=== PATIENT | female | born 1935 | race Caucasian/White ===

== ENCOUNTER → 2017-08-18 | Outpatient (CLI) | payer OTHER | LOC: CIMAGING 16:14 | PROVIDERS: ATTEND Internal Medicine | DX: M19.011 Primary osteoarthritis, right shoulder (principal); S40.011A Contusion of right shoulder, initial encounter; S70.00XA Contusion of unspecified hip, initial encounter; S70.10XA Contusion of unspecified thigh, initial encounter | CPT/HCPCS: 73030-PO; 73502-PO ==

== ENCOUNTER 2017-08-26 22:36 | Emergency (ER) | payer OTHER ==
--- NOTE | 2017-08-26 22:50 | EDPHY ---
H & P HPI/ROS: HPI CHIEF COMPLAINT: Right leg pain HISTORY OF PRESENT ILLNESS: Patient is a very pleasant 82-year-old female she has significant past medical history for AFib on Coumadin, additionally hypertension, denies history of denies history of heart disease or stroke. She presents emergency room with right leg pain this started at 8:30 a.m. this evening. Patient reports to me that last Thursday or over week ago she fell over cord she tripped over this. She landed on her right shoulder right hip. She has been using a cane to help ambulate since then. She did see her primary care doctor and had imaging of her right shoulder and right hip which she was told was normal. She states she did not have any significant pain going down her leg at that time. She states around 830 tonight she got up from a seated position and developed pain that radiates from right gluteus down the right posterior thigh and then across her knee into her foot. It is worse with certain movements. Especially when she gets up. She does report to me that she has spinal stenosis. No history of compression fracture. She denies any midline back pain. Denies new injury except a fall week ago. Pain described as achy 6/10 Radiating from right gluteus to right foot. Primary Care Doctor: Dr. Salamanca. Past Medical History: Hypertension, AFib on Coumadin, spinal stenosis Past Surgical History: Denies any recent surgery Social History: Denies daily use of drugs alcohol tobacco products. Resides locally. Dr. Salamanca is her primary care doctor Family History: Denies significant family history ROS REVIEW OF SYSTEMS: A comprehensive 10 point review of systems is otherwise negative aside from elements mentioned in the history of present illness. Exam Constitutional appears well nontoxic, triage nursing summary reviewed, vital signs reviewed, awake/alert. Eyes normal conjunctivae and sclera, EOMI, PERRLA. HENT normal inspection, atraumatic, moist mucus membranes, no epistaxis, neck supple/ no meningismus, no raccoon eyes. Respiratory clear to auscultation bilaterally, normal breath sounds, no respiratory distress, no wheezing. Cardiovascular rate normal, regular rhythm, no murmur, no edema, distal pulses normal. Gastrointestinal soft, non-tender, no rebound, no guarding, normal bowel sounds, no distension, no pulsatile mass. Genitourinary no CVA tenderness. Musculoskeletal no midline vertebral tenderness, full range of motion, no calf swelling, no tenderness of extremities, no meningismus, good pulses, neurovascularly intact. No midline lumbar back pain. Full range of motion of the right leg. It is neurovascularly intact. Sensation intact. Warm extremity. Good cap refill. Good distal pulse. With straight leg raise she does get some pain that shoots down her right leg. With crossed leg raise test no significant pain. Ecchymosis noted to the right hip. Compartments are soft. Skin ecchymosis present right shoulder, right hip. Neurologic awake, alert and oriented x 3, AAOx3, moves all 4 extremities equally, motor intact, sensory intact, CN II-XII intact, normal cerebellar, normal vision, normal speech. Psychiatric normal mood/affect. Heme/Lymph/Immune no lymphadenopathy. Differential Diagnosis: Includes but is not limited to in a particular order, sciatica, nerve root compression, annular tear, compression fracture, worsening spinal stenosis Medical Decision Making: Plan for this patient x-ray lumbar spine. She declined any pain medicine here in emergency room. Reason for lumbar spine x- rays to rule out compression fracture, given recent fall. Clinically she is neurovascular intact clinically I believe she has sciatica. I will prescribe her some pain medicine for home. Additionally recommend she has close follow- up with her primary care doctor if she continues to experience right leg pain. She has good pulse. Warm extremity. She has no signs of cauda equina. Specifically there is no saddle anesthesia. No bowel bladder incontinence or retention. There is no leg weakness. Re-evaluation: Plan for patient x-ray lumbar spine. Chandu for pain medication at home. I did discuss with the patient about possible MRI outpatient with her primary care doctor she understands. I do not feel that she needs a emergent MRI at this time. 2348: X-ray of the lumbar spine reviewed. Multilevel degenerative disc disease. Arthritic changes present. I do not appreciate acute compression fracture. This image was reviewed by myself. I discussed this at length with the patient. Recommend close follow-up with primary care doctor. Chandu for pain control. Return precautions given she understands. Source: Patient - Medical/Surgical History Hx Asthma: No Hx Chronic Respiratory Disease: No Hx Diabetes: No Hx Cardiac Disease: No Hx Renal Disease: No Hx Cirrhosis: No Hx Alcoholism: No Hx HIV/AIDS: No Hx Splenectomy or Spleen Trauma: No - Social History Smoking Status: Former smoker Constitutional: Initial Vital Signs Temperature (C) 37 C 08/26/17 22:56 Heart Rate 59 L 08/26/17 22:56 Respiratory Rate 18 08/26/17 22:56 Blood Pressure 179/72 H 08/26/17 22:56 O2 Sat (%) 91 L 08/26/17 22:56 O2 Delivery Mode Room Air Allergies/Adverse Reactions: No Known Allergies Allergy (Unverified 08/26/17 22:54) Home Medications: Medication Instructions Recorded Omeprazole [Prilosec 20 mg] 40 mg PO DAILY 05/19/16 Vit C/Vit E/Lutein/Min/[place]-3 1 each PO DAILY 05/19/16 [Ocuvite Softgel] Warfarin Sodium [Coumadin 4MG (*)] 4 mg PO DAILY16 05/19/16 Diltiazem [Cardizem 60 MG (*)] 08/26/17 Hydrocodone/APAP 5/325 [[place] 1 - 2 tab PO Q4H PRN #10 tab 08/26/17 5/325] Metoprolol Succinate 08/26/17 Departure - Departure Disposition: Home, Routine, Self-Care Clinical Impression: Sciatica Qualifiers: Laterality: unspecified laterality Qualified Code(s): M54.30 - Sciatica, unspecified side Condition: Good Instructions: Sciatica (ED), Lumbar Radiculopathy (ED) Additional Instructions: 1. Ice your back. 2. Follow up with your primary care doctor. 3. I have given you a limited supply of [place] for pain control. This is a narcotic he can make you sleepy. Do not drive with it. 4. Return emergency room if you have worsening pain questions or concerns. Referrals: Stewart Salamanca MD [Primary Care Provider] - As per Instructions Prescriptions: Hydrocodone/APAP 5/325 [[place] 5/325] 1 - 2 tab PO Q4H PRN #10 tab PRN Reason: Pain, Moderate
[2017-08-26 23:01] VITALS: PULSE 59; RESP 18; TEMP 98.6
[2017-08-27 00:05] VITALS: BP 149/77; O2SAT 92
== END 2017-08-27 00:05 | disposition home or self-care (01) ==
LOC: CED 22:36
DX: M54.30 Sciatica, unspecified side (principal); I10 Essential (primary) hypertension; Z79.01 Long term (current) use of anticoagulants; Z87.891 Personal history of nicotine dependence
CPT/HCPCS: 72100-PO

== ENCOUNTER → 2017-09-08 | Outpatient (CLI) | payer OTHER | LOC: CIMAGING 09:33 | PROVIDERS: ATTEND Internal Medicine | DX: Z12.31 Encounter for screening mammogram for malignant neoplasm of breast (principal) | CPT/HCPCS: G0202 ==

== ENCOUNTER → 2018-02-16 | Outpatient (CLI) | payer OTHER | LOC: CIMAGING 14:57 | PROVIDERS: ATTEND Internal Medicine | DX: R05 Cough (principal); R91.8 Other nonspecific abnormal finding of lung field | CPT/HCPCS: 71046-PO ==

== ENCOUNTER → 2018-02-23 | Outpatient (CLI) | payer OTHER | LOC: CIMAGING 09:11 | PROVIDERS: ATTEND Internal Medicine | DX: J98.4 Other disorders of lung (principal) | CPT/HCPCS: 71046-PO ==

== ENCOUNTER → 2018-06-23 | Outpatient (CLI) | payer OTHER | LOC: CIMAGING 09:25 | PROVIDERS: ATTEND Internal Medicine | DX: M24.10 Other articular cartilage disorders, unspecified site (principal); M23.92 Unspecified internal derangement of left knee | CPT/HCPCS: 73564-PO ==

== ENCOUNTER → 2018-07-15 | Outpatient (CLI) | payer OTHER | LOC: CIMAGING 10:30 | PROVIDERS: ATTEND Internal Medicine | DX: S72.432D Displaced fracture of medial condyle of left femur, subsequent encounter for closed fracture with routine healing (principal) | CPT/HCPCS: 73564-PO ==

== ENCOUNTER 2018-07-22 10:56 | Inpatient (IN) | payer OTHER ==
--- NOTE | 2018-07-22 11:27 | EDPHY ---
H & P Time Seen by Provider: 07/22/18 11:11 HPI/ROS: CHIEF COMPLAINT: AFib with rapid ventricular rate HISTORY OF PRESENT ILLNESS: The patient is an 83-year-old female who presents emergency department ongoing AFib and rapid ventricular rate. Patient was recently changed from short-acting diltiazem to long-acting diltiazem by her tumbler machine operator helper Dr. Jc. She was seen by her primary care physician on Thursday noted this still have a fast heart rate. Her medication dose was changed. She was told to come back to his office today. She continues to have elevated heart rate. She was sent to the emergency department for further evaluation. She denies any chest pain or shortness of breath. She has had mild pedal edema. REVIEW OF SYSTEMS: 10 systems were reveiwed and are negative with the exception of the elements mentioned in the history of present illness. Past Medical/Surgical History: Includes AFib, GERD, macular degeneration, hypertension, spinal stenosis Social history: Patient does not smoke Smoking Status: Former smoker Physical Exam: Vitals noted. Heart rate 137. GENERAL: Well-appearing, in no acute distress, alert. HEENT: Eyes normal to inspection, normal pharynx, no signs of dehydration. NECK: Normal, supple. RESPIRATORY: Clear to auscultation bilaterally, no rales, rhonchi or wheezing. CVS: Irregularly irregular tachycardia, no rubs, murmurs, or gallops. ABDOMEN: Soft, nontender, nondistended, no organomegaly. BACK: Normal to inspection, no CVA tenderness. SKIN: Normal color, no rash, warm, dry. No pallor. EXTREMITIES: Mild bilateral pedal edema, no calf tenderness, no Homans sign or cords, no joint swelling. NEURO/PSYCH: Alert and oriented, normal mood and affect, normal motor sensory exam. No obvious cranial nerve deficit. Constitutional: Initial Vital Signs Temperature (C) 36.7 C 07/22/18 11:02 Heart Rate 137 H 07/22/18 11:02 Respiratory Rate 20 07/22/18 11:02 Blood Pressure 116/81 H 07/22/18 11:02 O2 Sat (%) 92 07/22/18 11:02 O2 Delivery Mode Room Air Allergies/Adverse Reactions: No Known Allergies Allergy (Verified 07/22/18 11:01) Home Medications: Medication Instructions Recorded Omeprazole [Prilosec 20 mg] 40 mg PO DAILY 05/19/16 Vit C/Vit E/Lutein/Min/[place]-3 1 each PO DAILY 05/19/16 [Ocuvite Softgel] Warfarin Sodium [Coumadin 4MG (*)] 4 mg PO DAILY16 05/19/16 Diltiazem [Cardizem 60 MG (*)] 08/26/17 Metoprolol Succinate 08/26/17 Medical Decision Making ED Course/Re-evaluation: In the emergency department discussed the plan with the patient. I answered all her questions. IV was placed. Laboratory studies were obtained. EKG: Atrial fibrillation at 100. Normal axis. Normal intervals. No ST or T- wave abnormality. I reviewed the EKG from earlier today. She was noted to be in atrial fibrillation with a rapid rate Discussed case with Dr. Jc. He recommended treating the patient with IV diltiazem. I discussed the plan with the patient. I answered all her questions. Patient was given normal saline 5 mL IV. She is given diltiazem 10 mg IV and a diltiazem drip was ordered. The patient's initial troponin was negative. Patient had elevated BNP to 1470. INR was 2.6. Discussed case with the hospitalist service. Dr. Collins will admit. Differential Diagnosis: My differential includes but is not limited to atrial fibrillation, rapid ventricular response, ACS, acute CT, electrolyte abnormality, sugar abnormality , dehydration Critical Care Time: Patient required 35 min of critical care time. This was exclusive of any unbundled procedure. This was due the patient's atrial fibrillation with rapid ventricular rate, need for monitoring, IV diltiazem push and diltiazem drip, consultation with hospitalist service and Cardiology. - Data Points Laboratory Results: Laboratory Results 07/22/18 11:19 07/22/18 11:19 07/22/18 07/22/18 07/22/18 11:28 11:19 11:19 WBC RBC Hgb Hct MCV MCH MCHC RDW Plt Count MPV Neut % (Auto) Lymph % (Auto) [place] % (Auto) Eos % (Auto) Baso % (Auto) Nucleat RBC Rel Count Absolute Neuts (auto) Absolute Lymphs (auto) Absolute Monos (auto) Absolute Eos (auto) Absolute Basos (auto) Absolute Nucleated RBC Immature Gran % Immature Gran # PT 28.0 SEC H SEC (12.0-15.0) INR 2.63 H (0.83-1.16) APTT 37.7 SEC SEC (23.0-38.0) Sodium 141 mEq/L mEq/L (135-145) Potassium 4.5 mEq/L mEq/L (3.3-5.0) Chloride 105 mEq/L mEq/L (97-110) Carbon Dioxide 26 mEq/l mEq/l (22-31) Anion Gap 10 mEq/L mEq/L (6-14) BUN 16 mg/dL mg/dL (7-23) Creatinine 0.7 mg/dL mg/dL (0.6-1.0) Estimated GFR > 60 Glucose 94 mg/dL mg/dL (70-100) Calcium 9.1 mg/dL mg/dL (8.5-10.4) POC Troponin I 0.00 ng/mL ng/mL (0.00-0.08) NT-Pro-B Natriuret Pep 1470 pg/mL H pg/mL (0-450) 07/22/18 11:19 WBC 10.08 10^3/uL H 10^3/uL (3.80-9.50) RBC 4.40 10^6/uL 10^6/uL (4.18-5.33) Hgb 12.9 g/dL g/dL (12.6-16.3) Hct 39.9 % % (38.0-47.0) MCV 90.7 fL fL (81.5-99.8) MCH 29.3 pg pg (27.9-34.1) MCHC 32.3 g/dL L g/dL (32.4-36.7) RDW 14.9 % % (11.5-15.2) Plt Count 368 10^3/uL 10^3/uL (150-400) MPV 10.3 fL fL (8.7-11.7) Neut % (Auto) 66.0 % % (39.3-74.2) Lymph % (Auto) 24.0 % % (15.0-45.0) [place] % (Auto) 8.4 % % (4.5-13.0) Eos % (Auto) 0.5 % L % (0.6-7.6) Baso % (Auto) 0.9 % % (0.3-1.7) Nucleat RBC Rel Count 0.0 % % (0.0-0.2) Absolute Neuts (auto) 6.65 10^3/uL H 10^3/uL (1.70-6.50) Absolute Lymphs (auto) 2.42 10^3/uL 10^3/uL (1.00-3.00) Absolute Monos (auto) 0.85 10^3/uL H 10^3/uL (0.30-0.80) Absolute Eos (auto) 0.05 10^3/uL 10^3/uL (0.03-0.40) Absolute Basos (auto) 0.09 10^3/uL 10^3/uL (0.02-0.10) Absolute Nucleated RBC 0.00 10^3/uL 10^3/uL (0-0.01) Immature Gran % 0.2 % % (0.0-1.1) Immature Gran # 0.02 10^3/uL 10^3/uL (0.00-0.10) PT INR APTT Sodium Potassium Chloride Carbon Dioxide Anion Gap BUN Creatinine Estimated GFR Glucose Calcium POC Troponin I NT-Pro-B Natriuret Pep Medications Given: Discontinued Medications Sodium Chloride (Ns) 500 mls @ 0 mls/hr IV EDNOW ONE; Wide Open PRN Reason: Protocol Stop: 07/22/18 11:29 Last Admin: 07/22/18 11:37 Dose: 500 mls Point of Care Test Results: Chemistry 07/22/18 11:28 POC Troponin I 0.00 ng/mL ng/mL (0.00-0.08) Departure - Departure Disposition: [facility] Inpatient Acute Clinical Impression: Atrial fibrillation Qualifiers: Atrial fibrillation type: unspecified Qualified Code(s): I48.91 - Unspecified atrial fibrillation Congestive heart failure Qualifiers: Heart failure type: unspecified Heart failure chronicity: acute Qualified Code( s): I50.9 - Heart failure, unspecified Condition: Good Referrals: Stewart Salamanca MD [Primary Care Provider] - As per Instructions
[2018-07-22] MEDS ORDERED: NS 500 ML IV ONE (11:28)
[2018-07-22] MEDS ORDERED: DILTIAZEM 125 MG in D5W 125 ML IV ONE (11:28)
[2018-07-22] MEDS ORDERED: DILTIAZEM 25 MG/5 ML VIAL IVP ONE (11:28)
[2018-07-22 11:34] LABS: PLATELET COUNT 368 10^3/uL (150-400)
[2018-07-22 11:43] LABS: INR 2.63 (0.83-1.16)
[2018-07-22] MEDS ORDERED: ONDANSETRON DISINTEGRATING 4 MG TAB PO PRN (12:22)
[2018-07-22] MEDS ORDERED: ONDANSETRON 4 MG/2 ML VIAL IVP PRN (12:22)
[2018-07-22] MEDS ORDERED: ACETAMINOPHEN 325 MG TAB PO PRN (12:22)
--- NOTE | 2018-07-22 12:47 | CPEKG ---
Test Reason : OPEN Blood Pressure : / mmHG Vent. Rate : 100 BPM Atrial Rate : 214 BPM P-R Int : 132 ms QRS Dur : 098 ms QT Int : 324 ms P-R-T Axes : 000 054 -39 degrees QTc Int : 418 ms Atrial fibrillation Confirmed by Karen Vann ([id number]) on 07/22/2018 12:46:30 PM Referred By: Confirmed By:Karen Vann
[2018-07-22] MEDS ORDERED: AQUAPHOR OINTMENT 3.5 OZ JAR TP PRN (12:54)
--- NOTE | 2018-07-22 13:05 | PDGENHP ---
History and Physical - Chief Complaint Rapid heart rate - History of Present Illness 83 y/o female presents the ED with chronic a-fib with acute RVR. Her diltiazem dose recently changed at the beginning of the week from 30 mg to 120 mg. Nothing in particular aggravated the onset of RVR. She occasionally feels a twinge of chest pain but it dissipates quickly after it starts. She is short of breath upon exertion but this is not new and has been happening for a year. Denies fevers, chills, n/v, lightheadedness. She is being admitted for monitoring and further diagnostic work-up. History Information - Allergies/Home Medication List Allergies/Adverse Reactions: codeine Allergy (Verified 07/22/18 12:15) Home Medications: Omeprazole [Prilosec 20 mg] 40 mg PO DAILY 05/19/16 [Last Taken 07/22/18] Warfarin Sodium [Coumadin 4MG (*)] 4 mg PO SUMOTUTHFR 05/19/16 [Last Taken 07/20] Acetaminophen [Tylenol ES 500 mg (*)] 500 mg PO DAILY PRN 07/22/18 [Last Taken 07/16/18] C/E/Zn/Cu/OM3/DHA/EPA/LUT/ZEAX [Preservision Areds 2 Softgel] 1 each PO BID 10/08 [Last Taken 07/22/18] Diltiazem HCl [Cartia Xt] 120 mg PO DAILY 07/22/18 [Last Taken 07/22/18] Metoprolol Tartrate [Lopressor 25 mg (*)] 25 mg PO HS 07/22/18 [Last Taken 07/21] Warfarin Sodium [Coumadin 2MG (*)] 2 mg PO WESA 07/22/18 [Last Taken 07/21/18] I have personally reviewed and updated: family history, medical history, social history, surgical history Past Medical History: A-Fib, GERD, Macular Degeneration, HTN, Spinal Stenosis, LALISON - Surgical History Reports: hysterectomy - Family History Positive for: hypertension Additional family history: A-fib - Social History Smoking Status: Former smoker Alcohol Use: Rarely (1-2 glasses of wine/month) Drug Use: None Review of Systems Review of Systems: ROS: 10pt was reviewed & negative except for what was stated in HPI & below Constitutional: Reports: no symptoms EENMT: Reports: no symptoms Cardiac: Reports: chest pain, irregular heart rate, palpitations Respiratory: Reports: shortness of breath Gastrointestinal: Reports: no symptoms Genitourinary: Reports: no symptoms Muscolosketal: Reports: no symptoms Skin: Reports: no symptoms Neurological: Reports: no symptoms Hematologic/Lymphatic: Reports: no symptoms Immunologic/Allergy: Reports: no symptoms Physical Exam Physical Exam: Temp Pulse Resp BP Pulse Ox 36.7 C 137 H 20 116/81 H 92 07/22/18 11:02 07/22/18 11:02 07/22/18 11:02 07/22/18 11:02 07/22/18 11:02 Constitutional: no apparent distress, appears nourished, not in pain Eyes: PERRL, anicteric sclera, EOMI Ears, Nose, Mouth, Throat: moist mucous membranes, hearing normal, ears appear normal, no oral mucosal ulcers Cardiovascular: no murmur, rub, or gallop, irregularly irregular, edema (Mild, non-pitting bilateral pedal edema) Peripheral Pulses: 2+: dorsalis-pedis (R) (Radial pulse 2+), dorsalis-pedis (L) (Radial pulse 2+) Respiratory: no respiratory distress, no rales or rhonchi, clear to auscultation Gastrointestinal: normoactive bowel sounds, soft, non-tender abdomen, no palpable masses Genitourinary: no bladder fullness, no bladder tenderness Skin: warm, normal color, no rashes or abrasions, no fluctuance, no induration, No mottled Musculoskeletal: full muscle strength, no muscle tenderness, normal joint ROM, no joint effusions Neurologic: AAOx3, sensation intact bilaterally, CN II-XII Intact Psychiatric: interacting appropriately, not anxious, not encephalopathic, thought process linear Lymph, Heme, Immunologic: no cervical LAD, no supraclavicular LAD Lab Data & Imaging Review 07/22/18 11:19 07/22/18 11:19 WBC 10.08 10^3/uL (3.80-9.50) H 07/22/18 11:19 RBC 4.40 10^6/uL (4.18-5.33) 07/22/18 11:19 Hgb 12.9 g/dL (12.6-16.3) 07/22/18 11:19 Hct 39.9 % (38.0-47.0) 07/22/18 11:19 MCV 90.7 fL (81.5-99.8) 07/22/18 11:19 MCH 29.3 pg (27.9-34.1) 07/22/18 11:19 MCHC 32.3 g/dL (32.4-36.7) L 07/22/18 11:19 RDW 14.9 % (11.5-15.2) 07/22/18 11:19 Plt Count 368 10^3/uL (150-400) 07/22/18 11:19 MPV 10.3 fL (8.7-11.7) 07/22/18 11:19 Neut % (Auto) 66.0 % (39.3-74.2) 07/22/18 11:19 Lymph % (Auto) 24.0 % (15.0-45.0) 07/22/18 11:19 [place] % (Auto) 8.4 % (4.5-13.0) 07/22/18 11:19 Eos % (Auto) 0.5 % (0.6-7.6) L 07/22/18 11:19 Baso % (Auto) 0.9 % (0.3-1.7) 07/22/18 11:19 Nucleat RBC Rel Count 0.0 % (0.0-0.2) 07/22/18 11:19 Absolute Neuts (auto) 6.65 10^3/uL (1.70-6.50) H 07/22/18 11:19 Absolute Lymphs (auto) 2.42 10^3/uL (1.00-3.00) 07/22/18 11:19 Absolute Monos (auto) 0.85 10^3/uL (0.30-0.80) H 07/22/18 11:19 Absolute Eos (auto) 0.05 10^3/uL (0.03-0.40) 07/22/18 11:19 Absolute Basos (auto) 0.09 10^3/uL (0.02-0.10) 07/22/18 11:19 Absolute Nucleated RBC 0.00 10^3/uL (0-0.01) 07/22/18 11:19 Immature Gran % 0.2 % (0.0-1.1) 07/22/18 11:19 Immature Gran # 0.02 10^3/uL (0.00-0.10) 07/22/18 11:19 PT 28.0 SEC (12.0-15.0) H 07/22/18 11:19 INR 2.63 (0.83-1.16) H 07/22/18 11:19 APTT 37.7 SEC (23.0-38.0) 07/22/18 11:19 Sodium 141 mEq/L (135-145) 07/22/18 11:19 Potassium 4.5 mEq/L (3.3-5.0) 07/22/18 11:19 Chloride 105 mEq/L (97-110) 07/22/18 11:19 Carbon Dioxide 26 mEq/l (22-31) 07/22/18 11:19 Anion Gap 10 mEq/L (6-14) 07/22/18 11:19 BUN 16 mg/dL (7-23) 07/22/18 11:19 Creatinine 0.7 mg/dL (0.6-1.0) 07/22/18 11:19 Estimated GFR > 60 07/22/18 11:19 Glucose 94 mg/dL (70-100) 07/22/18 11:19 Calcium 9.1 mg/dL (8.5-10.4) 07/22/18 11:19 POC Troponin I 0.00 ng/mL (0.00-0.08) 07/22/18 11:28 NT-Pro-B Natriuret Pep 1470 pg/mL (0-450) H 07/22/18 11:19 Assessment & Plan Assessment: 83 y/o female with history significant for A-Fib and HTN presents with RVR. Plan: 1. A-Fib with RVR: stable. HR and BP in ED was 137 and 116/81. Received Diltiazem 10 mg IVP and started on Dilitiazem drip. HR and BP now are 106 and 112/69. [id number] score: 4 points = Stroke risk 4.8% per year in >90,000 patients ( the [place] Atrial Fibrillation Cohort Study) and 6.7% risk of stroke/TIA/ systemic embolism. -Dr. Jc consulted and aware -Continue Diltiazem drip -Introduce diltiazem PO -Completely wean off drip when rate controlled with PO -Continue warfarin; she took her dose today 2. GERD -Continue home medications 3. HTN -Monitor with diltiazem drip -Continue home medications 4. ALLISON: wears CPAP at home -Monitor O2 sats -Respiratory consult for HS CPAP 5. BNP: 1470. Do not have a baseline to compare but does not present with s/s indicative of heart failure. CTAB; not SOB while in conversation and in 2016 left sided cath, angiography and ventriculogram showed 65% LVEF. -Continue to monitor Diet: Regular VTE ppx: Warfarin, SCDs Code: DNR Dispo: Admit to inpatient
[2018-07-22] MEDS: DILTIAZEM 30 MG TAB PO SCH ×2 (14:11→18:01)
--- NOTE | 2018-07-22 14:55 | HOSPPROG ---
Hospitalist Progress Note Assessment/Plan: Patient seen and evaluated by myself and SHANIA Mills. I agree with assessment and plan formulated. Patient currently on diltiazem gtt with HR 100- 140's. We will reinitiate short acting diltiazem 30 mg q6 hours and attempt to wean off diltiazem gtt. Patient also on Metoprolol 25 mg qHS, will uptitrate B- [place] as well for rate control if CCB is ineffective. Per patient, Dr. Jc , her primary water/wastewater project engineer who saw patient in ED today, will discuss with EP, Dr. Link. Will await official cardiology recommendations. Objective: Vital Signs Temp Pulse Resp BP Pulse Ox 36.4 C 102 H 16 129/79 H 90 L 07/22/18 14:39 07/22/18 14:39 07/22/18 14:39 07/22/18 14:39 07/22/18 14:39 PT 28.0 SEC (12.0-15.0) H 07/22/18 11:19 INR 2.63 (0.83-1.16) H 07/22/18 11:19 ICD10 Worksheet Patient Problems: Problems Problem Status Onset Atrial fibrillation Acute Congestive heart failure Acute
--- NOTE | 2018-07-22 15:08 | PDMN ---
Medical Necessity Medical necessity: Pt meets inpt criteria per MD order and MCG M-505, Atrial Fibrillation. 83 y/o presenting w/shortness of breath and occasional chest pain admitted w/afib w/RVR HR 130's, elevated BNP 1470 indicative of heart failure. Diltiazem gtt initiated, cardiology consult, EP consult pending, anticipate>2MN for ongoing eval/management of above.
--- NOTE | 2018-07-22 16:11 | ECHO ---
[email or web address] [address] [address] Main: [phone] Fax: [email or web address] Echocardiogram Name: ANTONIA TRIANA MR#: [id number] Study Date: 07/22/2018 Study Time: 03:15 PM Date of : 1935 Age: 83 year(s) Height: 154.9 cm (61 in.) Weight: 84.37 kg (186 lb.) BSA: 1.83 m2 Gender: Female Examination: Echo Indication: afib with RVR, elevated BNP Image Quality: Adequate Contrast: Requested by: Fausto Collins BP: 128 mmHg/79 mmHg Heart Rate: Rhythm: Indication: afib with RVR, elevated BNP Procedure Staff Inverter And Clipper: Carrie Damian [facility] Reading Physician: Camilo Colorado MD Requesting Provider: Conclusions: Borderline concentric LV hypertrophy. Normal global systolic LV function. EF is 63 %. Moderate mitral annular calcification. Mild mitral valve regurgitation is present. Mild tricuspid regurgitation is present. Right ventricular systolic pressure measures 49mmHg. Measurements: Chambers Valvular Assessment AV/MV Valvular Assessment TV/PV Normal Normal Normal Name Value Range Name Value Range Name Value Range Ao Deonna (MM): 3.0 cm (2.2 cm-3.7 AV Vmax: 1.28 m/s (1 m/s-1.7 TR Vmax: 2.93 mm/s ( - ) cm) m/s) TR PGmax: 34 mmHg ( - ) IVSd (2D): 0.9 cm (0.6 cm-1.1 AV maxP mmHg ( - ) syst. PAP: 49 mmHg ( - ) cm) LVOT Vmax: 0.81 m/s (0.7 m/s-1.1 PV Vmax: 0.95 m/s (0.6 m/s-0.9 LVDd (2D): 4.7 cm (3.9 cm-5.3 m/s) m/s) cm) KELLY (Vmax): 2.0 cm2 ( - ) PV PGmax: 4 mmHg ( - ) LVDs (2D): 3.0 cm (2.1 cm-4 MV E Vmax: 1.05 m/s ( - ) cm) LVPWd (2D): 1.0 cm ( - ) LVOTd 2.0 cm 2.0 cm mm LVEF (BP): 63 % (>=55 %) RVDd(2D): 3.1 cm (1.9 cm-3.8 cmmm) Continued Measurements: Chambers Valvular Assessment AV/MV Valvular Assessment TV/PV Name Value Name Value Name Value Patient: ANTONIA TRIANA Study Date: 07/22/2018 Page 1 of 2 03:15 PM LADs: 4.2 cm MV DecTime: 134 m/s CVP (est.): 15 mmHg LADs Lon.8 cm MV E' Septal: 0.08 m/s LA Area: 23.3 cm2 MV E/E' Septal: 12.70 LA Volume: 76 ml MV E' Lateral: 0.08 m/s LA Volume Index: 41.5 ml/m2 MV E/E' Lateral: 12.40 TAPSE: 1.8 cm MV E' Mean: 0.08 m/s RA Area: 19.9 cm2 MV E/E' Mean: 13.12 Additional Vessels Name Value Ao Ascendin.2 cm Findings: Left Ventricle: Normal size left ventricle. Borderline concentric LV hypertrophy. Normal global systolic LV function. EF is 63 %. No regional wall motion abnormality. Unable to assess diastolic dysfunction. Right Ventricle: Normal size right ventricle. Normal RV function. Left Atrium: The left atrium is moderately dilated. Right Atrium: The right atrium is mildly to moderately dilated. Mitral Valve: There is mild thickening of the mitral valve leaflets. Moderate mitral annular calcification. Mild mitral valve regurgitation is present. No mitral stenosis is present. Aortic Valve: The aortic valve is tri-leaflet. There is no aortic valve regurgitation. No aortic valve stenosis is present. Tricuspid Valve: The tricuspid valve is normal in appearance and function. Mild tricuspid regurgitation is present. Right ventricular systolic pressure measures 49mmHg. The pulmonary artery pressure is moderately increased. Pulmonic Valve: Pulmonary valve not well visualized. Trivial pulmonic valve regurgitation. Aorta: Normal size aortic root measuring 3.0 cm. Normal size ascending aorta measuring 3.2 cm. IVC: The IVC is dilated. There is less than 50% respiratory excursion. Pericardium: Trivial pericardial effusion. There is pericardial fat. (No Signature Object) Patient: ANTONIA TRIANA Study Date: 07/22/2018 Page 2 of 2 03:15 PM [id number]
--- NOTE | 2018-07-22 16:53 | PDCARPN ---
Cardiology Progress Note Chief Complaint: Ongoing atrial fibrillation with rapid ventricular response Assessment/Plan: Assessment: Patient is an 83 y/o female with history of pAF (on coumadin with [id number] score of 4), GERD, ALLISON with CPAP use, HTN, and HLP, who presents to [facility] ER with complaints of refractory atrial fibrillation. Patient was last seen by me in early April for follow up on holter monitor. Overall, at that time, the patient was feeling well. No atrial fibrillation was noted on the holter monitor. Since that time, however, changes to availability for her dose of diltiazem led to attempts at varying doses of therapy, none of which were successful with suppression of the current bout of atrial fibrillation. Three visits with PCP as well as numerous communications with cardiology have not been able to successfully convert the patient back to sinus rhythm. Upon arrival to the ER, IV CCB therapy was started, and her heart rates promptly reduced to 70-80 bpm, with oral therapy (30 mg per day) started. Issues being, that with ambulation, she does note acceleration of the AV conduction and rates of 150-170 bpm have not been unusual for her. Plan: (1) Cardiology recommending that the patient continue IV CCB overnight to suppress rate and rhythm (2) Continue coumadin for CVA prophylaxis (3) Would also continue metoprolol for both HTN as well as heart rate suppression (4) Monitor heart rate via tele overnight. Consideration for cardioversion in the morning - recommendation for patient to be NPO after midnight - this bout of atrial fibrillation is unusual for the patient. Subjective: Patient feeling better at present Reviewed/Discussed With: hospitalist Objective: Vital Signs (8 Hrs) Temp Pulse Resp BP Pulse Ox 07/22/18 15:51 36.7 C 75 18 119/71 92 07/22/18 14:39 36.4 C 102 H 16 129/79 H 90 L 07/22/18 14:11 110 H Intake/Output (24 Hrs) 07/21/18 07/22/18 07/23/18 05:59 05:59 05:59 Intake Total 320 Balance 320 Intake: Oral (ml) 320 Other: Weight 84.368 kg Number of Voids Toilet 1 Result Diagrams: 07/22/18 11:19 07/22/18 11:19 EKG: atrial fibrillation Telemetry: atrial fibrillation Echocardiogram: Normal systolic function appreciated on echocardiogram this afternoon - Physical Exam Constitutional: WDWN, healthy appearing, no apparent distress, obese Eyes: PERRL, EOMI Ears, Nose, Mouth, Throat: moist mucous membranes Cardiovascular: irregularly irregular, pulses symmetric bilat, No jugular vein distention Peripheral Pulses: 2+: dorsalis-pedis (R), dorsalis-pedis (L) Respiratory: clear to auscultate bilat, no crackles, no wheezes Gastrointestinal: normoactive bowel sounds Skin: no rashes, no edema Musculoskeletal: no muscular tenderness Neurologic: AAOx3, CN II-XII grossly intact Psychiatric: cooperative, interactive, following commands ICD10 Worksheet Patient Problems: Problems Problem Status Onset Atrial fibrillation Acute Congestive heart failure Acute
[2018-07-22] MEDS: DILTIAZEM 125 MG in D5W 125 ML IV SCH (17:07)
[2018-07-22] MEDS: METOPROLOL TARTRATE 25 MG TAB PO SCH (21:06)
[2018-07-23] MEDS: DILTIAZEM 30 MG TAB PO SCH ×5 (00:03→23:53)
[2018-07-23 04:19] LABS: INR 2.86 (0.83-1.16); PROTIME(PATIENT) 29.9 SEC (12.0-15.0)
[2018-07-23] MEDS: PANTOPRAZOLE SODIUM 40 MG TAB PO SCH (08:07)
[2018-07-23] MEDS: WARFARIN SODIUM 4 MG TAB PO SCH (08:07)
[2018-07-23] MEDS ORDERED: DIGOXIN 250 MCG TAB PO ONE (09:15)
--- NOTE | 2018-07-23 09:18 | PDCARPN ---
Cardiology Progress Note Chief Complaint: Patient doing fair today. Heart rates overnight continue to be elevated - more than desired by cardiology (and patient) Assessment/Plan: Assessment: 07-23-18 Patient doing fair today. No events overnight. Trial with IV CCB and oral therapy did slow heart rates somewhat, but minimal activity continues to result in accelerated heart rates. Patient remains in atrial fibrillation today. No chest pains or pressure. No PND or orthopnea. 07-22-18 Patient is an 83 y/o female with history of pAF (on coumadin with [id number] score of 4), GERD, ALLISON with CPAP use, HTN, and HLP, who presents to [facility] ER with complaints of refractory atrial fibrillation. Patient was last seen by me in early April for follow up on holter monitor. Overall, at that time, the patient was feeling well. No atrial fibrillation was noted on the holter monitor. Since that time, however, changes to availability for her dose of diltiazem led to attempts at varying doses of therapy, none of which were successful with suppression of the current bout of atrial fibrillation. Three visits with PCP as well as numerous communications with cardiology have not been able to successfully convert the patient back to sinus rhythm. Upon arrival to the ER, IV CCB therapy was started, and her heart rates promptly reduced to 70-80 bpm, with oral therapy (30 mg per day) started. Issues being, that with ambulation, she does note acceleration of the AV conduction and rates of 150-170 bpm have not been unusual for her. Plan: (1) Add digoxin today (250 mcg) (2) Would continue coumadin for CVA prophylaxis (3) Continue therapy on diltiazem drip as at present (appears to be 5 mg/hr) (4) Metoprolol should continue for assistance with rate control (5) Consideration for DEVAUGHN with possible cardioversion this afternoon (would make the patient NPO now ... she did eat some breakfast) (6) Patient was in agreement with these plans Subjective: No cardiovascular complaints. Ongoing awareness of accelerated heart rates Reviewed/Discussed With: multidisciplinary team Objective: Vital Signs (8 Hrs) Temp Pulse Resp BP Pulse Ox 07/23/18 07:24 36.9 C 89 16 114/59 L 91 L 07/23/18 02:56 36.6 C 85 13 109/69 95 Intake/Output (24 Hrs) 07/22/18 07/23/18 07/24/18 05:59 05:59 05:59 Intake Total 895.0 Balance 895.0 Intake: Oral (ml) 870 IV Infused (ml) 25.0 Diltiazem 125 mg In D5w 17.5 125 ml @ As Directed IV EDNOW ONE Rx#:[id number] Diltiazem 125 mg In D5w 7.5 125 ml @ Per Protocol IV CONT LAURA Rx#:[id number] Other: Weight 87.7 kg Number of Voids Toilet 2 Result Diagrams: 07/22/18 11:19 07/22/18 11:19 Telemetry: atrial fibrillation with RVR - Physical Exam Constitutional: WDWN, healthy appearing, no apparent distress, obese Eyes: PERRL, EOMI Ears, Nose, Mouth, Throat: moist mucous membranes Cardiovascular: irregularly irregular, pulses symmetric bilat, No jugular vein distention Peripheral Pulses: 2+: dorsalis-pedis (R), dorsalis-pedis (L) Respiratory: clear to auscultate bilat, no crackles, no wheezes Gastrointestinal: normoactive bowel sounds Skin: no edema Musculoskeletal: no muscular tenderness Neurologic: AAOx3, CN II-XII grossly intact Psychiatric: cooperative, interactive, following commands ICD10 Worksheet Patient Problems: Problems Problem Status Onset Atrial fibrillation Acute Congestive heart failure Acute
--- NOTE | 2018-07-23 13:40 | HOSPPROG ---
Hospitalist Progress Note Assessment/Plan: 1. A-Fib with RVR: stable. HR and BP in ED was 137 and 116/81. Received Diltiazem 10 mg IVP and started on Dilitiazem drip. -Cardiology, Dr. Jc, consulted -Continue Diltiazem drip per cardiology recommendations -Continue PO Diltiazem and Metoprolol -Completely wean off drip when rate controlled with PO -CHADsVASC 4, continue warfarin; INR therapeutic - Digoxin 250 mcg added by cardiology this AM - Plan for DEVAUGHN cardioversion this afternoon per cards 2. GERD -Continue home medications 3. HTN -Monitor with diltiazem drip -Continue home medications 4. ALLISON: wears CPAP at home -Monitor O2 sats -Respiratory consult for HS CPAP 5. BNP: 1470. Do not have a baseline to compare but does not present with s/s indicative of heart failure. CTAB; not SOB while in conversation and in 2016 left sided cath, angiography and ventriculogram showed 65% LVEF. -Continue to monitor Diet: Regular VTE ppx: Warfarin, SCDs Code: DNR Dispo: Pending clinical course, rate/rhythm control of A Fib Subjective: Patient reports palpitations with exertion this AM Objective: Vital Signs Temp Pulse Resp BP Pulse Ox 36.9 C 92 18 97/76 L 90 L 07/23/18 11:27 07/23/18 11:27 07/23/18 11:27 07/23/18 11:27 07/23/18 11:27 07/22/18 07/23/18 07/24/18 05:59 05:59 05:59 Intake Total 895.0 Balance 895.0 PT 29.9 SEC (12.0-15.0) H 07/23/18 03:47 INR 2.86 (0.83-1.16) H 07/23/18 03:47 - Physical Exam Constitutional: no apparent distress Eyes: PERRL Ears, Nose, Mouth, Throat: moist mucous membranes Cardiovascular: irregularly irregular, tachycardia Respiratory: no respiratory distress Gastrointestinal: soft, non-tender abdomen Musculoskeletal: full muscle strength Neurologic: AAOx3 Psychiatric: interacting appropriately ICD10 Worksheet Patient Problems: Problems Problem Status Onset Atrial fibrillation Acute Congestive heart failure Acute
--- NOTE | 2018-07-23 15:10 | ASMTCMCOM ---
CM Note CM Note Notes: CM spoke to Dr. Collins regarding d/c POC. Pt is a 83 y/o female admitted for afib and CHF. Pt will most likely d/c independent when medically stable. No therapies ordered at this time. CM available for changes. Plan: Independent Date Signed: 07/23/2018 03:10 PM Electronically Signed By:JENN Wiggins
[2018-07-23] MEDS ORDERED: DIGOXIN 500 MCG/2 ML AMP IVP ONE (16:40)
[2018-07-23] MEDS: METOPROLOL TARTRATE 25 MG TAB PO SCH (21:05)
[2018-07-23] MEDS: DILTIAZEM 125 MG in D5W 125 ML IV SCH (22:11)
[2018-07-24 04:30] LABS: INR 2.72 (0.83-1.16); PROTIME(PATIENT) 28.8 SEC (12.0-15.0)
[2018-07-24] MEDS: DILTIAZEM 30 MG TAB PO SCH ×4 (07:06→23:39)
[2018-07-24] MEDS ORDERED: WARFARIN SODIUM 2 MG TAB PO SCH (09:00)
--- NOTE | 2018-07-24 09:12 | PDCARCONS ---
Cardiology Consult Reason for Consult: Electrophysiology consultation for atrial fibrillation Chief Complaint: Fatigue, exercise intolerance, palpitations Requesting Physician: Dr. Carlos Eduardo Jc History of Present Illness: I was requested to see this patient by Dr. Carlos Eduardo Jc. Very pleasant 83-year- old female with longstanding history of atrial fibrillation. Symptoms have become persistent over the last 3 months. She notes decreased exercise tolerance, fatigue and palpitations, especially when her heart rates are elevated. She has noted heart rates up to 150 beats per minute. She denies any chest pain, shortness of breath, syncope. History Information - Allergies/Home Medication List Allergies/Adverse Reactions: codeine Allergy (Verified 07/22/18 12:15) Home Medications: Omeprazole [Prilosec 20 mg] 40 mg PO DAILY 05/19/16 [Last Taken 07/22/18] Warfarin Sodium [Coumadin 4MG (*)] 4 mg PO SUMOTUTHFR 05/19/16 [Last Taken 07/20] Acetaminophen [Tylenol ES 500 mg (*)] 500 mg PO DAILY PRN 07/22/18 [Last Taken 07/16/18] C/E/Zn/Cu/OM3/DHA/EPA/LUT/ZEAX [Preservision Areds 2 Softgel] 1 each PO BID 10/08 [Last Taken 07/22/18] Diltiazem HCl [Cartia Xt] 120 mg PO DAILY 07/22/18 [Last Taken 07/22/18] Metoprolol Tartrate [Lopressor 25 mg (*)] 25 mg PO HS 07/22/18 [Last Taken 07/21] Warfarin Sodium [Coumadin 2MG (*)] 2 mg PO WESA 07/22/18 [Last Taken 07/21/18] Past Medical History: - Social History Smoking Status: Former smoker Alcohol Use: Rarely (1-2 glasses of wine/month) Drug Use: None Physical Exam Physical Exam: Temp Pulse Resp BP Pulse Ox 36.7 C 79 17 116/60 90 L 07/24/18 07:15 07/24/18 07:15 07/24/18 07:15 07/24/18 07:15 07/24/18 07:15 O2 (L/minute) 2 Constitutional: no apparent distress, appears nourished Eyes: PERRL, EOMI Ears, Nose, Mouth, Throat: moist mucous membranes, hearing normal Cardiovascular: irregularly irregular Respiratory: no respiratory distress Gastrointestinal: normoactive bowel sounds, soft, non-tender abdomen Neurologic: AAOx3 Psychiatric: interacting appropriately, not anxious, not encephalopathic Lab and Imaging 07/22/18 11:19 07/22/18 11:19 WBC 10.08 10^3/uL (3.80-9.50) H 07/22/18 11:19 RBC 4.40 10^6/uL (4.18-5.33) 07/22/18 11:19 Hgb 12.9 g/dL (12.6-16.3) 07/22/18 11:19 Hct 39.9 % (38.0-47.0) 07/22/18 11:19 MCV 90.7 fL (81.5-99.8) 07/22/18 11:19 MCH 29.3 pg (27.9-34.1) 07/22/18 11:19 MCHC 32.3 g/dL (32.4-36.7) L 07/22/18 11:19 RDW 14.9 % (11.5-15.2) 07/22/18 11:19 Plt Count 368 10^3/uL (150-400) 07/22/18 11:19 MPV 10.3 fL (8.7-11.7) 07/22/18 11:19 Neut % (Auto) 66.0 % (39.3-74.2) 07/22/18 11:19 Lymph % (Auto) 24.0 % (15.0-45.0) 07/22/18 11:19 Hettinger % (Auto) 8.4 % (4.5-13.0) 07/22/18 11:19 Eos % (Auto) 0.5 % (0.6-7.6) L 07/22/18 11:19 Baso % (Auto) 0.9 % (0.3-1.7) 07/22/18 11:19 Nucleat RBC Rel Count 0.0 % (0.0-0.2) 07/22/18 11:19 Absolute Neuts (auto) 6.65 10^3/uL (1.70-6.50) H 07/22/18 11:19 Absolute Lymphs (auto) 2.42 10^3/uL (1.00-3.00) 07/22/18 11:19 Absolute Monos (auto) 0.85 10^3/uL (0.30-0.80) H 07/22/18 11:19 Absolute Eos (auto) 0.05 10^3/uL (0.03-0.40) 07/22/18 11:19 Absolute Basos (auto) 0.09 10^3/uL (0.02-0.10) 07/22/18 11:19 Absolute Nucleated RBC 0.00 10^3/uL (0-0.01) 07/22/18 11:19 Immature Gran % 0.2 % (0.0-1.1) 07/22/18 11:19 Immature Gran # 0.02 10^3/uL (0.00-0.10) 07/22/18 11:19 PT 28.8 SEC (12.0-15.0) H 07/24/18 03:41 INR 2.72 (0.83-1.16) H 07/24/18 03:41 APTT 37.7 SEC (23.0-38.0) 07/22/18 11:19 Sodium 141 mEq/L (135-145) 07/22/18 11:19 Potassium 4.5 mEq/L (3.3-5.0) 07/22/18 11:19 Chloride 105 mEq/L (97-110) 07/22/18 11:19 Carbon Dioxide 26 mEq/l (22-31) 07/22/18 11:19 Anion Gap 10 mEq/L (6-14) 07/22/18 11:19 BUN 16 mg/dL (7-23) 07/22/18 11:19 Creatinine 0.7 mg/dL (0.6-1.0) 07/22/18 11:19 Estimated GFR > 60 07/22/18 11:19 Glucose 94 mg/dL (70-100) 07/22/18 11:19 Calcium 9.1 mg/dL (8.5-10.4) 07/22/18 11:19 POC Troponin I 0.00 ng/mL (0.00-0.08) 07/22/18 11:28 NT-Pro-B Natriuret Pep 1470 pg/mL (0-450) H 07/22/18 11:19 Telemetry: Atrial fibrillation, ventricular rate at rest is 70-80 beats per minute. A/P Assessment: 1. Hypertension 2. Persistent atrial fibrillation 3. GERD 4. Macular degeneration 5. Obstructive sleep apnea Plan: Very pleasant 83-year-old with hypertension, sleep apnea, persistent atrial fibrillation. Over the last 3 months her symptoms have increased in severity. Her predominant complaints are fatigue, exertional intolerance and palpitations. I reassured her that atrial fibrillation is not a life-threatening arrhythmia. Treatment options discussed included: 1. [id number] Score is 4, she needs to remain on lifelong anticoagulation. Currently she is on warfarin with therapeutic INR. 2. Cardioversion procedure - with persistent atrial fibrillation, I doubt that she will maintain sinus rhythm post cardioversion. She needs to be on antiarrhythmic drug therapy. We discussed amiodarone is the best option available. Side effects of the drug were reviewed with her at length. She does not want to take amiodarone on a chronic basis. As an alternative we discussed propafenone which has less significant side effects. However this drug also has lower success rates. She wants to try this drug. She will be started on propafenone SR 225 mg twice daily. After loading with this drug, she will undergo DEVAUGHN guided cardioversion on Thursday. 3. We discussed rate control only approach, this is not her preference because she is symptomatic with atrial fibrillation even when her ventricular rates are controlled 4. We briefly discussed pulmonary vein isolation procedure, this is not an ideal option for her given her advanced age 5. We discussed pacemaker and AV node ablation which would be considered as therapy of last resort if the above options do not help her. Plan at this time is to proceed with option 2. This was a complex discussion with the patient due to need for review of records , discussion of pathophysiology of disease and discussion regarding multiple treatment modalities. I spent 45 minutes with the patient, more than 50% of which was spent in counseling.
[2018-07-24] MEDS: PROPAFENONE HCL SR 225 MG CAP PO SCH ×2 (09:43→21:16)
[2018-07-24] MEDS: PANTOPRAZOLE SODIUM 40 MG TAB PO SCH (09:43)
--- NOTE | 2018-07-24 12:37 | HOSPPROG ---
Hospitalist Progress Note Assessment/Plan: 1. A-Fib with RVR: stable. HR and BP in ED was 137 and 116/81. Received Diltiazem 10 mg IVP and started on Dilitiazem drip. -Cardiology consulted on admission -Was initially placed on diltiazem gtt, has been titrated off -Continue PO Diltiazem and Metoprolol - CHADsVASC 4, continue warfarin; INR therapeutic - S/p Digoxin loading yesterday - Discussed with Dr. Link, EP, this morning who recommends starting propafenone SR 225 mg twice daily. - After loading with Propafenone over the weekend, she will undergo DEVAUGHN guided cardioversion on Thursday. 2. GERD -Continue home medications 3. HTN -Continue home medications 4. ALLISON: wears CPAP at home -Monitor O2 sats -Respiratory consult for HS CPAP 5. BNP: 1470. Do not have a baseline to compare but does not present with s/s indicative of heart failure. CTAB; not SOB while in conversation and in 2016 left sided cath, angiography and ventriculogram showed 65% LVEF. -Continue to monitor Diet: Regular VTE ppx: Warfarin, SCDs Code: DNR Dispo: Pending clinical course, rate/rhythm control of A Fib Subjective: Patient reports some palpitations this morning Objective: Vital Signs Temp Pulse Resp BP Pulse Ox 36.9 C 88 14 111/74 95 07/24/18 11:04 07/24/18 11:04 07/24/18 11:04 07/24/18 11:04 07/24/18 11:04 07/23/18 07/24/18 07/25/18 05:59 05:59 04:59 Intake Total 895.0 268.6 Balance 895.0 268.6 PT 28.8 SEC (12.0-15.0) H 07/24/18 03:41 INR 2.72 (0.83-1.16) H 07/24/18 03:41 - Physical Exam Constitutional: no apparent distress Eyes: PERRL Ears, Nose, Mouth, Throat: moist mucous membranes Cardiovascular: irregularly irregular Respiratory: no respiratory distress Gastrointestinal: soft, non-tender abdomen Genitourinary: No de la rosa in urethra Skin: normal color Musculoskeletal: full muscle strength Neurologic: AAOx3 Psychiatric: interacting appropriately ICD10 Worksheet Patient Problems: Problems Problem Status Onset Atrial fibrillation Acute Congestive heart failure Acute
[2018-07-24] MEDS: METOPROLOL TARTRATE 25 MG TAB PO SCH (21:13)
[2018-07-25 04:07] LABS: INR 2.69 (0.83-1.16); PROTIME(PATIENT) 28.5 SEC (12.0-15.0)
[2018-07-25] MEDS: DILTIAZEM 30 MG TAB PO SCH ×3 (06:32→17:45)
[2018-07-25] MEDS: WARFARIN SODIUM 4 MG TAB PO SCH (07:58)
[2018-07-25] MEDS: PANTOPRAZOLE SODIUM 40 MG TAB PO SCH (07:58)
[2018-07-25] MEDS: PROPAFENONE HCL SR 225 MG CAP PO SCH ×2 (07:58→21:16)
--- NOTE | 2018-07-25 09:42 | PDCARPN ---
Cardiology Progress Note Chief Complaint: Atrial fibrillation Assessment/Plan: Assessment: Symptomatic atrial fibrillation Plan: Started propafenone SR yesterday. Plan DEVAUGHN guided cardioversion in the morning 07/25/18 09:42 Subjective: Feels well, does feel palpitation and fatigue Time Spent with Patient: greater than 25 minutes Time Spent with Patient: Greater than 25 minutes spent on this patients care, greater than 50% of time spent counseling, educating, and coordinating care regarding the above mentioned plan. Objective: Vital Signs (8 Hrs) Temp Pulse Resp BP Pulse Ox 07/25/18 07:37 36.7 C 76 19 118/74 94 07/25/18 06:32 94/43 L 07/25/18 03:35 36.4 C 84 20 92/57 L 94 Intake/Output (24 Hrs) 07/23/18 07/24/18 07/25/18 11:59 11:59 10:59 Intake Total 895.0 268.6 800 Balance 895.0 268.6 800 Intake: Oral (ml) 870 200 800 IV Infused (ml) 25.0 68.6 Diltiazem 125 mg In D5w 17.5 125 ml @ As Directed IV EDNOW ONE Rx#:[id number] Diltiazem 125 mg In D5w 7.5 68.6 125 ml @ Per Protocol IV CONT LAURA Rx#:[id number] Other: Weight 87.7 kg Intake Quantity Yes Sufficient Number of Voids Toilet 1 2 Result Diagrams: 07/22/18 11:19 07/22/18 11:19 Telemetry: Atrial fibrillation ICD10 Worksheet Patient Problems: Problems Problem Status Onset Atrial fibrillation Acute Congestive heart failure Acute
--- NOTE | 2018-07-25 12:28 | HOSPPROG ---
Hospitalist Progress Note Assessment/Plan: 1. A-Fib with RVR: stable. HR and BP in ED was 137 and 116/81. Received Diltiazem 10 mg IVP and started on Dilitiazem drip. - Cardiology consulted on admission - Was initially placed on diltiazem gtt, has been titrated off - Continue PO Diltiazem and Metoprolol - CHADsVASC 4, continue warfarin; INR therapeutic - S/p Digoxin loading on 07/23 - Discussed with Dr. Link EP, on 07/25 who started propafenone SR 225 mg twice daily on 07/24 - Plan for DEVAUGHN guided cardioversion on Thursday 2. GERD -Continue home medications 3. HTN -Continue home medications 4. ALLISON: wears CPAP at home -Monitor O2 sats -Respiratory consult for HS CPAP 5. BNP: 1470. Do not have a baseline to compare but does not present with s/s indicative of heart failure. CTAB; not SOB while in conversation and in 2015 left sided cath, angiography and ventriculogram showed 65% LVEF. -Continue to monitor Diet: Regular VTE ppx: Warfarin, SCDs Code: DNR Dispo: Pending clinical course, rate/rhythm control of A Fib Subjective: Patient reports no complaints this AM Objective: Vital Signs Temp Pulse Resp BP Pulse Ox 36.7 C 105 H 19 105/89 H 95 07/25/18 11:22 07/25/18 11:22 07/25/18 11:22 07/25/18 11:22 07/25/18 11:22 07/24/18 07/25/18 07/26/18 06:59 05:59 05:59 Intake Total Balance PT 28.5 SEC (12.0-15.0) H 07/25/18 03:36 INR 2.69 (0.83-1.16) H 07/25/18 03:36 - Physical Exam Constitutional: no apparent distress Eyes: PERRL Ears, Nose, Mouth, Throat: moist mucous membranes Cardiovascular: irregularly irregular Respiratory: no respiratory distress Gastrointestinal: soft, non-tender abdomen Genitourinary: No de la rosa in urethra Skin: warm Musculoskeletal: full muscle strength Neurologic: AAOx3 Psychiatric: interacting appropriately ICD10 Worksheet Patient Problems: Problems Problem Status Onset Atrial fibrillation Acute Congestive heart failure Acute
--- NOTE | 2018-07-25 16:16 | ASMTCMCOM ---
CM Note CM Note Notes: Reviewed chart regarding discharge plan of care, pt's progress. Per Cardiology notes, pt scheduled for a DEVAUGHN/CV on Thursday07/26/18. Discharge needs remain unclear. Anticipate pt will likely discharge home independently when medically stable. CM will continue to follow. Discharge Plan: Home Independently Date Signed: 07/25/2018 04:15 PM Electronically Signed By:Mikayla Wilkins RN
[2018-07-25] MEDS: METOPROLOL TARTRATE 25 MG TAB PO SCH (21:16)
[2018-07-26] MEDS: DILTIAZEM 30 MG TAB PO SCH ×2 (01:44→06:37)
[2018-07-26 04:28] LABS: INR 2.81 (0.83-1.16); PROTIME(PATIENT) 29.5 SEC (12.0-15.0)
[2018-07-26] MEDS ORDERED: ATROPINE SULFATE 1 MG/10 ML SYR IVP ONE (06:00)
[2018-07-26 07:44] VITALS: BP 129/68
[2018-07-26] MEDS: PANTOPRAZOLE SODIUM 40 MG TAB PO SCH (08:33)
[2018-07-26] MEDS: WARFARIN SODIUM 4 MG TAB PO SCH (08:33)
[2018-07-26] MEDS: PROPAFENONE HCL SR 225 MG CAP PO SCH (08:33)
--- NOTE | 2018-07-26 09:18 | PDCARPN ---
Cardiology Progress Note Chief Complaint: Patient feeling better today Assessment/Plan: Assessment: 07-26-18 No cardiovascular complaints this morning. Patient converted to normal sinus/ sinus bradycardia this morning around 5 am (after a >3 second pause). At present, no complaints of chest pains or pressure. No PND or orthopnea. Patient was give Rythmol given concerns that cardioversion would not otherwise last. Blood pressure was well controlled this morning. 07-23-18 Patient doing fair today. No events overnight. Trial with IV CCB and oral therapy did slow heart rates somewhat, but minimal activity continues to result in accelerated heart rates. Patient remains in atrial fibrillation today. No chest pains or pressure. No PND or orthopnea. 07-22-18 Patient is an 83 y/o female with history of pAF (on coumadin with [id number] score of 4), GERD, ALLISON with CPAP use, HTN, and HLP, who presents to [facility] ER with complaints of refractory atrial fibrillation. Patient was last seen by me in early April for follow up on holter monitor. Overall, at that time, the patient was feeling well. No atrial fibrillation was noted on the holter monitor. Since that time, however, changes to availability for her dose of diltiazem led to attempts at varying doses of therapy, none of which were successful with suppression of the current bout of atrial fibrillation. Three visits with PCP as well as numerous communications with cardiology have not been able to successfully convert the patient back to sinus rhythm. Upon arrival to the ER, IV CCB therapy was started, and her heart rates promptly reduced to 70-80 bpm, with oral therapy (30 mg per day) started. Issues being, that with ambulation, she does note acceleration of the AV conduction and rates of 150-170 bpm have not been unusual for her. Plan: (1) Continue Rythmol as at present (225 mg twice per day) (2) Discontinue metoprolol (3) Continue diltiazem (120 mg ER) (4) Patient is scheduled for follow up in the outpatient setting this Thursday Subjective: No complaints Reviewed/Discussed With: multidisciplinary team Objective: Vital Signs (8 Hrs) Temp Pulse Resp BP Pulse Ox 07/26/18 07:43 36.8 C 50 L 14 129/68 H 94 07/26/18 06:37 108 H 100/55 L 07/26/18 04:00 36.5 C 91 20 113/89 H 96 07/26/18 01:44 118 H Intake/Output (24 Hrs) 07/25/18 07/26/18 07/27/18 05:59 05:59 05:59 Intake Total 100 Balance 100 Intake: Oral (ml) 100 Other: Intake Quantity Sufficient Number of Voids Toilet Number of Stools Toilet 3 Result Diagrams: 07/22/18 11:19 07/26/18 03:53 Telemetry: Sinus bradycardia - Physical Exam Constitutional: WDWN, healthy appearing, no apparent distress, obese Eyes: PERRL, EOMI Ears, Nose, Mouth, Throat: moist mucous membranes, no oral ulcers Cardiovascular: regular rate and rhythm, pulses symmetric bilat, No jugular vein distention Peripheral Pulses: 2+: dorsalis-pedis (R), dorsalis-pedis (L) Respiratory: clear to auscultate bilat, no crackles, no wheezes Gastrointestinal: normoactive bowel sounds Skin: no edema Musculoskeletal: no muscular tenderness Neurologic: AAOx3, CN II-XII grossly intact Psychiatric: cooperative, interactive, following commands ICD10 Worksheet Patient Problems: Problems Problem Status Onset Atrial fibrillation Acute Congestive heart failure Acute
--- NOTE | 2018-07-26 13:44 | PDDCSUM ---
Discharge Summary Discharge Summary: Date of Admission: 07/22/2018 Date of Discharge: 07/26/2018 Consults: Cardiology Procedures: TTE Followup: Cardiology Hospital Course Problem List: 1. A-Fib with RVR - Cardiology consulted on admission - Was initially placed on diltiazem gtt, titrated off day after admission due to improved HR - Seen by Dr. Link, EP, who started propafenone SR 225 mg twice daily on 07/24 - Continue PO Diltiazem, switched back from 30 mg QID to 120 mg ER - CHADsVASC 4, continue warfarin; INR therapeutic - S/p Digoxin loading on 07/23 - Patient converted to NSR overnight, per cardiology, plan is to continue Propafenone 225 mg BID, Diltiazem 120 mg qd and will f/u with them in clinic this week 2. GERD -Continue home medications 3. HTN -Continue home medications 4. ALLISON: wears CPAP at home -Monitor O2 sats -Respiratory consult for HS CPAP Time spent on discharge was >35 minutes with >50% of time spent on patient education and counseling
--- NOTE | 2018-07-26 16:20 | ASDISCHSUM ---
Discharge Information Plan Status:Home with No Needs Medically Cleared to Leave:07/25/2018 Discharge Date:07/26/2018 11:55 AM CM D/C Disposition:Home, Routine, Self-Care ADT D/C Disposition:Home, Routine, Self-Care Projected Discharge Date:07/26/2018 11:55 AM Transportation at D/C:Family Discharge Delay Reason: Follow-Up Date:07/26/2018 11:55 AM Discharge Slot: Final Diagnosis: Placement Information Patient Contact Information Contact Name:RICKY Relationship:Daughter Address: Home Phone: City: [facility] Phone: [facility] Code: Email: Financial Information Financial Class:Medicare Advantage Plans Primary Plan Desc:[facility] [employer] Primary Plan Number:[id number] Secondary Plan Desc: Secondary Plan Number: Assessment Information LACE LACE Length of stay for Answers: 4-6 days current admission Acuity / Level of Answers: Yes Care: Did the patient have an inpatient admission? Comorbidities - select Answers: Other Notes: AFib; Macular all that apply degeneration; HTN: Spin al stenosis # of Emergency department Answers: 1-2 visits in the last 6 months Score: 9 Date Signed: 07/26/2018 04:18 PM Electronically Signed By:Dahiana Tamayo RN [facility] Progress Note CM Note CM Note Notes: CM spoke to Dr. Collins regarding d/c POC. Pt is a 83 y/o female admitted for afib and CHF. Pt will most likely d/c independent when medically stable. No therapies ordered at this time. CM available for changes. Plan: Independent Date Signed: 07/23/2018 03:10 PM Electronically Signed By:JENN Wiggins [facility] CM Progress Note CM Note CM Note Notes: Reviewed chart regarding discharge plan of care, pt's progress. Per Cardiology notes, pt scheduled for a DEVAUGHN/CV on Thursday07/26/18. Discharge needs remain unclear. Anticipate pt will likely discharge home independently when medically stable. CM will continue to follow. Discharge Plan: Home Independently Date Signed: 07/25/2018 04:15 PM Electronically Signed By:Mikayla Wilkins RN Case Management Discharge Plan Note Case Management Discharge Discharge Order Complete? Answers: Yes Patient to Obtain Answers: via Family Medications Transportation Arranged Answers: Family/Friends Discharge Comments Notes: 07/26/2018 Case Management Note Pt discharged home independent with follow up as directed. Date Signed: 07/26/2018 04:19 PM Electronically Signed By:Dahiana Tamayo RN Intervention Information Intervention Type:*Incorrect Registration Date of Service:07/22/2018 03:00 PM Patient Type:Observation Staff Member:DARREN Robles Patricia Hours: Discipline: Severity: Comment: Intervention Type:*IM-Signed Date of Service:07/26/2018 10:26 AM Patient Type:Inpatient Staff Member:Cinthia Cazares Hours: Discipline: Severity: Comment:
--- NOTE | 2018-07-27 12:28 | CPEKG ---
Test Reason : OPEN Blood Pressure : / mmHG Vent. Rate : 052 BPM Atrial Rate : 052 BPM P-R Int : 188 ms QRS Dur : 103 ms QT Int : 424 ms P-R-T Axes : 062 060 014 degrees QTc Int : 395 ms Sinus rhythm Low voltage, precordial leads Prior ECG with atrial fibrillation Confirmed by Carlos Eduardo Jc ([id number]) on 07/27/2018 12:28:11 PM Referred By: Confirmed By:Carlos Eduardo Jc
== END 2018-07-26 11:55 | disposition home or self-care (01) | DRG 310 ==
LOC: OBSVTOIN 12:24 → F2W 13:27
PROVIDERS: ADMIT Internal Medicine; ATTEND Internal Medicine
DX: I48.91 Unspecified atrial fibrillation (principal); K21.9 Gastro-esophageal reflux disease without esophagitis; I10 Essential (primary) hypertension; G47.33 Obstructive sleep apnea (adult) (pediatric); H35.30 Unspecified macular degeneration; Z79.01 Long term (current) use of anticoagulants; Z87.891 Personal history of nicotine dependence
CPT/HCPCS: 84484-PO; J1160

== ENCOUNTER 2018-07-30 10:31 | Observation (INO) | payer OTHER ==
--- NOTE | 2018-07-30 10:55 | EDPHY ---
H & P Time Seen by Provider: 07/30/18 10:44 HPI/ROS: Chief complaint. Irregular heartbeat HPI. Patient 83-year-old female with recent admission for atrial fibrillation with rapid ventricular rate. She converted to normal sinus rhythm in the hospital. However 3 days ago she developed palpitations and sense of irregular heartbeat. She has no chest pain however has she has shortness of breath that is worse with exertion. She also feels her heart races with exertion she feels fatigue. No fever. No unusual leg pain or swelling. On Coumadin for atrial fibrillation ROS 10 systems were reviewed and negative with the exception of the elements mentioned in the history of present illness Past Medical/Surgical History: Atrial fibrillation, GERD, macular degeneration, hypertension, spinal stenosis, COPD Social History: Single, nonsmoker, no alcohol Smoking Status: Former smoker Physical Exam: General Appearance: Alert well-developed female mild distress vital signs are stable Eyes: Pupils equal and round no pallor or injection. ENT, Mouth: Mucous membranes are moist. Respiratory: There are no retractions, lungs are clear to auscultation. Cardiovascular: Irregularly irregular rate and rhythm Gastrointestinal: Abdomen is soft and nontender, no masses, bowel sounds normal. Neurological: Awake and alert, sensory and motor exams grossly normal. Skin: Warm and dry, no rashes. Musculoskeletal: Neck is supple nontender. Extremities symmetrical, full range of motion. Psychiatric: Patient is oriented X 3, there is no agitation. Constitutional: Initial Vital Signs Temperature (C) 37.1 C 07/30/18 10:36 Heart Rate 103 H 07/30/18 10:36 Respiratory Rate 18 07/30/18 10:36 Blood Pressure 138/96 H 07/30/18 10:36 O2 Sat (%) 92 07/30/18 10:36 O2 Delivery Mode Nasal Cannula O2 (L/minute) 2 Allergies/Adverse Reactions: codeine Allergy (Severe, Verified 07/30/18 12:22) hydrocodone Allergy (Severe, Verified 07/30/18 12:22) Vomiting tramadol Allergy (Severe, Verified 07/30/18 12:22) Vomiting Home Medications: Medication Instructions Recorded Omeprazole [Prilosec 20 mg] 40 mg PO DAILY 05/19/16 Warfarin Sodium [Coumadin 4MG (*)] 4 mg PO SUMOTUTHFR 05/19/16 Acetaminophen [Tylenol ES 500 mg 500 mg PO DAILY PRN 07/22/18 (*)] C/E/Zn/Cu/OM3/DHA/EPA/LUT/ZEAX 1 each PO BID 07/22/18 [Preservision Areds 2 Softgel] Diltiazem HCl [Cartia Xt] 120 mg PO DAILY 07/22/18 Warfarin Sodium [Coumadin 2MG (*)] 2 mg PO WESA 07/22/18 Propafenone HCl Sr [Rythmol Sr 225 mg PO Q12HRS #14 cap 07/26/18 225mg (*)] Medical Decision Making - Diagnostics EKG Interpretation: EKG interpreted by me shows atrial fibrillation with normal axis. QRS is otherwise normal no significant ST elevation or depression. Ventricular response is 94 Imaging Results: Imaging Impressions Chest X-Ray 07/30/18 11:02 Impression: Interstitial prominence that may be related to mild fluid overload or bronchitis. Chest x-ray shows no pneumonia but it appears to show CHF Procedures: IV normal saline, monitor ED Course/Re-evaluation: Patient remained stable. She and I discussed imaging lab EKG studies. We discussed treatment plan including recommendation for admission. She expresses understanding and agreement I consulted discussed case Dr. Kumar, hospitalist who agrees to the admission I also consulted discussed case with Dr. Jc for Cardiology Patient seen by Cardiology in the emergency department Differential Diagnosis: Atrial fibrillation with quite good rate control. I considered acute coronary syndrome, pneumonia, CHF as well - Data Points Laboratory Results: Laboratory Results 07/30/18 11:07 07/30/18 11:07 07/30/18 07/30/18 07/30/18 11:08 11:07 11:07 WBC RBC Hgb Hct MCV MCH MCHC RDW Plt Count MPV Neut % (Auto) Lymph % (Auto) [place] % (Auto) Eos % (Auto) Baso % (Auto) Nucleat RBC Rel Count Absolute Neuts (auto) Absolute Lymphs (auto) Absolute Monos (auto) Absolute Eos (auto) Absolute Basos (auto) Absolute Nucleated RBC Immature Gran % Immature Gran # PT 31.0 SEC H SEC (12.0-15.0) INR 3.00 H (0.83-1.16) APTT 45.4 SEC H SEC (23.0-38.0) Sodium 141 mEq/L mEq/L (135-145) Potassium 4.0 mEq/L mEq/L (3.3-5.0) Chloride 102 mEq/L mEq/L (97-110) Carbon Dioxide 28 mEq/l mEq/l (22-31) Anion Gap 11 mEq/L mEq/L (6-14) BUN 10 mg/dL mg/dL (7-23) Creatinine 0.6 mg/dL mg/dL (0.6-1.0) Estimated GFR > 60 Glucose 109 mg/dL H mg/dL (70-100) Calcium 9.1 mg/dL mg/dL (8.5-10.4) POC Troponin I 0.00 ng/mL ng/mL (0.00-0.08) NT-Pro-B Natriuret Pep 744 pg/mL H pg/mL (0-450) Procalcitonin 07/30/18 07/30/18 11:07 11:01 WBC 12.85 10^3/uL H 10^3/uL (3.80-9.50) RBC 4.31 10^6/uL 10^6/uL (4.18-5.33) Hgb 12.7 g/dL g/dL (12.6-16.3) Hct 38.7 % % (38.0-47.0) MCV 89.8 fL fL (81.5-99.8) MCH 29.5 pg pg (27.9-34.1) MCHC 32.8 g/dL g/dL (32.4-36.7) RDW 14.6 % % (11.5-15.2) Plt Count 360 10^3/uL 10^3/uL (150-400) MPV 10.0 fL fL (8.7-11.7) Neut % (Auto) 78.1 % H % (39.3-74.2) Lymph % (Auto) 12.4 % L % (15.0-45.0) [place] % (Auto) 8.6 % % (4.5-13.0) Eos % (Auto) 0.2 % L % (0.6-7.6) Baso % (Auto) 0.4 % % (0.3-1.7) Nucleat RBC Rel Count 0.0 % % (0.0-0.2) Absolute Neuts (auto) 10.03 10^3/uL H 10^3/uL (1.70-6.50) Absolute Lymphs (auto) 1.59 10^3/uL 10^3/uL (1.00-3.00) Absolute Monos (auto) 1.11 10^3/uL H 10^3/uL (0.30-0.80) Absolute Eos (auto) 0.03 10^3/uL 10^3/uL (0.03-0.40) Absolute Basos (auto) 0.05 10^3/uL 10^3/uL (0.02-0.10) Absolute Nucleated RBC 0.00 10^3/uL 10^3/uL (0-0.01) Immature Gran % 0.3 % % (0.0-1.1) Immature Gran # 0.04 10^3/uL 10^3/uL (0.00-0.10) PT INR APTT Sodium Potassium Chloride Carbon Dioxide Anion Gap BUN Creatinine Estimated GFR Glucose Calcium POC Troponin I NT-Pro-B Natriuret Pep Procalcitonin 0.07 ng/mL ng/mL (0.02-0.10) Medications Given: Discontinued Medications Furosemide (Lasix Injection) 20 mg IVP ONCE ONE Stop: 07/30/18 12:54 Last Admin: 07/30/18 13:33 Dose: 20 mg Sodium Chloride (Ns) 500 mls @ 1,000 mls/hr IV EDNOW ONE PRN Reason: Protocol Stop: 07/30/18 11:31 Last Admin: 07/30/18 11:07 Dose: 500 mls Point of Care Test Results: Chemistry 07/30/18 11:08 POC Troponin I 0.00 ng/mL ng/mL (0.00-0.08) Departure - Departure Disposition: [facility] Inpatient Acute Clinical Impression: Atrial fibrillation Qualifiers: Atrial fibrillation type: unspecified Qualified Code(s): I48.91 - Unspecified atrial fibrillation Condition: Fair
[2018-07-30] MEDS ORDERED: NS 500 ML IV ONE (11:02)
[2018-07-30 11:17] LABS: PLATELET COUNT 360 10^3/uL (150-400)
[2018-07-30] MEDS ORDERED: FUROSEMIDE 20 MG/2 ML VIAL IVP ONE ×2 (12:53→15:01)
[2018-07-30] MEDS ORDERED: ONDANSETRON DISINTEGRATING 4 MG TAB PO PRN (14:49)
[2018-07-30] MEDS ORDERED: ONDANSETRON 4 MG/2 ML VIAL IVP PRN (14:49)
[2018-07-30] MEDS ORDERED: ACETAMINOPHEN 325 MG TAB PO PRN (14:49)
--- NOTE | 2018-07-30 14:55 | PDGENHP ---
History and Physical - Chief Complaint SOB - History of Present Illness The pt is a 83 yo female with hx of pAfib who was admitted here last week who returns with SOB. She is noted to have new onset of pedal edema. She was d/c previously on SR and is noted to be in Afib with a rate in the 90's. BNP is elevated. CXR shows fluid overload. She does not report any fever to me, although she did report low fever to Cardiology earlier today. Her WBC is slightly elevated. She denies rhinorrhea, sore throat, vomiting, diarrhea, rash. She denies chills. she has had a cough, and it is not productive. She is not sure if her cough or sob is worse when supine. History Information - Allergies/Home Medication List Allergies/Adverse Reactions: codeine Allergy (Severe, Verified 07/30/18 12:22) hydrocodone Allergy (Severe, Verified 07/30/18 12:22) Vomiting tramadol Allergy (Severe, Verified 07/30/18 12:22) Vomiting Home Medications: Omeprazole [Prilosec 20 mg] 40 mg PO DAILY 05/19/16 [Last Taken 07/30/18] Warfarin Sodium [Coumadin 4MG (*)] 4 mg PO SUMOTUTHFR 05/19/16 [Last Taken 07/30] Acetaminophen [Tylenol ES 500 mg (*)] 500 mg PO DAILY PRN 07/22/18 [Last Taken 07/16/18] C/E/Zn/Cu/OM3/DHA/EPA/LUT/ZEAX [Preservision Areds 2 Softgel] 1 each PO BID 10/08 [Last Taken 07/30/18] Diltiazem HCl [Cartia Xt] 120 mg PO DAILY 07/22/18 [Last Taken 07/30/18] Warfarin Sodium [Coumadin 2MG (*)] 2 mg PO WESA 07/22/18 [Last Taken 07/28/18] I have personally reviewed and updated: medical history, social history Past Medical History: A-Fib, GERD, Macular Degeneration, HTN, Spinal Stenosis, ALLISON - Surgical History Reports: hysterectomy - Family History Positive for: hypertension Additional family history: A-fib - Social History Smoking Status: Former smoker Review of Systems Review of Systems: ROS: 10pt was reviewed & negative except for what was stated in HPI & below Physical Exam Physical Exam: Temp Pulse Resp BP Pulse Ox 37.1 C 93 18 124/78 H 9 L 07/30/18 13:16 07/30/18 13:16 07/30/18 13:16 07/30/18 13:16 07/30/18 13:16 O2 (L/minute) 2 Constitutional: no apparent distress Eyes: PERRL Cardiovascular: edema (trace - 1+), other (irr/irr) Respiratory: reduced air movement, expiratory wheeze Gastrointestinal: normoactive bowel sounds Skin: warm Musculoskeletal: full muscle strength Neurologic: AAOx3 Psychiatric: interacting appropriately, not anxious, not encephalopathic Lymph, Heme, Immunologic: No petechiae Lab Data & Imaging Review 07/30/18 11:07 07/30/18 11:07 WBC 12.85 10^3/uL (3.80-9.50) H 07/30/18 11:07 RBC 4.31 10^6/uL (4.18-5.33) 07/30/18 11:07 Hgb 12.7 g/dL (12.6-16.3) 07/30/18 11:07 Hct 38.7 % (38.0-47.0) 07/30/18 11:07 MCV 89.8 fL (81.5-99.8) 07/30/18 11:07 MCH 29.5 pg (27.9-34.1) 07/30/18 11:07 MCHC 32.8 g/dL (32.4-36.7) 07/30/18 11:07 RDW 14.6 % (11.5-15.2) 07/30/18 11:07 Plt Count 360 10^3/uL (150-400) 07/30/18 11:07 MPV 10.0 fL (8.7-11.7) 07/30/18 11:07 Neut % (Auto) 78.1 % (39.3-74.2) H 07/30/18 11:07 Lymph % (Auto) 12.4 % (15.0-45.0) L 07/30/18 11:07 [place] % (Auto) 8.6 % (4.5-13.0) 07/30/18 11:07 Eos % (Auto) 0.2 % (0.6-7.6) L 07/30/18 11:07 Baso % (Auto) 0.4 % (0.3-1.7) 07/30/18 11:07 Nucleat RBC Rel Count 0.0 % (0.0-0.2) 07/30/18 11:07 Absolute Neuts (auto) 10.03 10^3/uL (1.70-6.50) H 07/30/18 11:07 Absolute Lymphs (auto) 1.59 10^3/uL (1.00-3.00) 07/30/18 11:07 Absolute Monos (auto) 1.11 10^3/uL (0.30-0.80) H 07/30/18 11:07 Absolute Eos (auto) 0.03 10^3/uL (0.03-0.40) 07/30/18 11:07 Absolute Basos (auto) 0.05 10^3/uL (0.02-0.10) 07/30/18 11:07 Absolute Nucleated RBC 0.00 10^3/uL (0-0.01) 07/30/18 11:07 Immature Gran % 0.3 % (0.0-1.1) 07/30/18 11:07 Immature Gran # 0.04 10^3/uL (0.00-0.10) 07/30/18 11:07 PT 31.0 SEC (12.0-15.0) H 07/30/18 11:07 INR 3.00 (0.83-1.16) H 07/30/18 11:07 APTT 45.4 SEC (23.0-38.0) H 07/30/18 11:07 Sodium 141 mEq/L (135-145) 07/30/18 11:07 Potassium 4.0 mEq/L (3.3-5.0) 07/30/18 11:07 Chloride 102 mEq/L (97-110) 07/30/18 11:07 Carbon Dioxide 28 mEq/l (22-31) 07/30/18 11:07 Anion Gap 11 mEq/L (6-14) 07/30/18 11:07 BUN 10 mg/dL (7-23) 07/30/18 11:07 Creatinine 0.6 mg/dL (0.6-1.0) 07/30/18 11:07 Estimated GFR > 60 07/30/18 11:07 Glucose 109 mg/dL (70-100) H 07/30/18 11:07 Calcium 9.1 mg/dL (8.5-10.4) 07/30/18 11:07 POC Troponin I 0.00 ng/mL (0.00-0.08) 07/30/18 11:08 NT-Pro-B Natriuret Pep 744 pg/mL (0-450) H 07/30/18 11:07 Urine Color COLORLESS 07/30/18 14:16 Urine Appearance CLEAR 07/30/18 14:16 Urine pH 7.0 (5.0-7.5) 07/30/18 14:16 Ur Specific [place] 1.004 (1.002-1.030) 07/30/18 14:16 Urine Protein NEGATIVE (NEGATIVE) 07/30/18 14:16 Urine Ketones NEGATIVE (NEGATIVE) 07/30/18 14:16 Urine Blood NEGATIVE (NEGATIVE) 07/30/18 14:16 Urine Nitrate NEGATIVE (NEGATIVE) 07/30/18 14:16 Urine Bilirubin NEGATIVE (NEGATIVE) 07/30/18 14:16 Urine Urobilinogen NEGATIVE EU (0.2-1.0) 07/30/18 14:16 Ur Leukocyte Esterase NEGATIVE (NEGATIVE) 07/30/18 14:16 Urine RBC 1-3 /hpf (0-3) 07/30/18 14:16 Urine WBC 1-3 /hpf (0-3) 07/30/18 14:16 Ur Epithelial Cells NONE SEEN /lpf (NONE-1+) 07/30/18 14:16 Urine Mucus TRACE /lpf (NONE-1+) 07/30/18 14:16 Urine Glucose NEGATIVE (NEGATIVE) 07/30/18 14:16 Nasal Influenza A PCR NEGATIVE FOR FLU A (NEGATIVE) 07/30/18 12:57 Nasal Influenza B PCR NEGATIVE FOR FLU B (NEGATIVE) 07/30/18 12:57 Assessment & Plan Assessment: #CHF-E #Hypoxemia #Afib, acute on chronic #Weakness #AC-chronic Plan: I suspect that her Hypoxemia is due fluid overload. She already received Lasix 20 in ER. She will get another Lasix 20 now. I don't suspect that has a pneumonia although the slight Leukocytosis is noted. Her Influenza is negative. I will order a PC. She also has a hx of tobacco use and reports that she has previously been diagnosed with COPD. We will monitor her response overnight, recheck CXR, and determine if there is a need for further diuretics vs other agent such as steroids tomorrow. We will wait for the PC. As for cardioversion, she will be kept on her rhythm agent as well as the CCB. She will cont with Warfarin which will be dose per Pharmacy PT/OT
--- NOTE | 2018-07-30 15:31 | CPEKG ---
Test Reason : OPEN Blood Pressure : / mmHG Vent. Rate : 094 BPM Atrial Rate : 103 BPM P-R Int : 129 ms QRS Dur : 114 ms QT Int : 337 ms P-R-T Axes : 000 079 -62 degrees QTc Int : 422 ms Atrial fibrillation Confirmed by Thang Dwyer ([id number]) on 07/30/2018 3:30:51 PM Referred By: Confirmed By:Thang Dwyer
[2018-07-30] MEDS ORDERED: IPRATROPIUM/ALBUTEROL 3 ML DEYVIAL IH SCH (16:00)
--- NOTE | 2018-07-30 16:20 | GCON ---
CARDIOLOGY CONSULTATION. REFERRING PHYSICIAN: Thang Dwyer MD SUPERVISING ROLLOFF DRIVER: Dr. Carlos Eduardo Huntley. INDICATION FOR CARDIOLOGY CONSULTATION: Atrial fibrillation. HISTORY OF PRESENT ILLNESS: The patient is an 83-year-old female who is known to our practice. She has significant history that includes paroxysmal atrial fibrillation, with recent hospitalization for AFib with RVR from July 22 through July 26. During that time, she had been started on propafenone and spontaneously converted back into sinus rhythm. The patient also has a significant history of ALLISON, uses CPAP at night; hypertension; GERD; hyperlipidemia. Patient informs me since her hospital discharge on the , she had been feeling well for 2 days, reporting on Thursday, feeling that her heart rate was irregular. She did become more fatigued, feeling that she went back into atrial fibrillation. She did not report any significant elevated heart rates. She does state yesterday, developing more fatigue. She does state that she had been running some mild fevers and had noticed chills. Today , she was seen at our [place] office by Dr. Jc, her primary interlocking and signal mechanic, who did an electrocardiogram on her, finding that she was back in atrial fibrillation, but with heart rates up to 115 beats per minute. The patient had reported her weakness, fatigue, and feelings of potential fevers and chills, and feeling that potentially she may have an upper respiratory illness that may be contributing to her atrial fibrillation, and she was sent to the emergency department for further evaluation. Upon arrival, repeated electrocardiogram done did note AFib with rate control at 94 beats per minute. No acute ST or T- wave abnormalities. LABORATORY DATA: Laboratory studies drawn did note an elevated white blood cell count of 12.85. BNP was noted to be mildly elevated at 744, and troponin level was 0.00. Chest x-ray did note prominences that may be related to mild fluid overload or bronchitis. PAST SURGICAL HISTORY: Includes: 1. Paroxysmal atrial fibrillation. 2. Hypertension. 3. Hyperlipidemia. 4. Lumbar stenosis. 5. Macular degeneration. 6. ALLISON. PAST SURGICAL HISTORY: Includes hysterectomy and meniscectomy. FAMILY HISTORY: Positive for hypertension and atrial fibrillation, but no coronary artery disease. SOCIAL HISTORY: She is a former smoker. She rarely uses alcohol. Denies any illicit drug use. ALLERGIES: Codeine, hydrocodone, Tramadol. HOME MEDICATIONS: Include warfarin 4 mg p.o. Thursday, Thursday, Thursday, , Thursday, warfarin 2 mg Thursday and Thursday, propafenone 25 mg p.o. q.12 hours, omeprazole 40 mg p.o. daily, diltiazem 120 mg p.o. daily, soft gels 1 tablet p.o. b.i.d., and acetaminophen 500 mg p.o. daily p.r.n. REVIEW OF SYSTEMS: A 10-point review of systems done on patient, all negative, except as mentioned above. PHYSICAL EXAMINATION: GENERAL APPEARANCE: Small-statured, mildly obese female. She is alert and oriented to person, place, time, and situation. Appears to be under no acute distress. VITAL SIGNS: Current vital signs are blood pressure of 124/78, heart rate of 93, atrial fibrillation, on the monitor. Respirations are 18, saturating 95% on 2 L nasal cannula. Temperature 37.1 degrees Celsius. HEENT: Head is normocephalic. Lips and tongue are pink and moist, with no signs of cyanosis. Conjunctivae pink. NECK : Trachea is midline, +2 carotid pulses bilateral. No auscultated bruits, no jugular vein distention. LUNGS: Clear, but diminished in bases bilateral, no rhonchi, rales, mild expiratory wheeze noted, no accessory muscle use, no intercostal muscle retraction noted. CARDIAC: Regular rate, irregular rhythm, S1, S2, no S3, S4, gallops, rubs or murmurs noted. ABDOMEN: Soft, nontender, bowel sounds x4 quadrants, no organomegaly, no palpable masses. SKIN: [place], warm, dry, no cyanosis, no clubbing, trace peripheral edema, bilateral lower extremities. VASCULAR: +2 carotids bilateral, +2 radials bilateral, +1 dorsal pedal and posterior tibial pulses bilateral. LABORATORY STUDIES: Laboratory studies drawn today show a WBC of 12.85, hemoglobin of 12.7, hematocrit of 38.7, platelet count 360, INR 3.0, sodium 141 , potassium 4.0, chloride 102, CO2 28, BUN 10, creatinine 0.6, glucose 109, calcium 9.1, troponin less than 0.0, proBNP 740. Prolactin 0.07. UA was done, which was unremarkable. STUDIES: Electrocardiogram, as mentioned above. Chest x-ray, as mentioned above. The patient did undergo echocardiogram on July 22, which noted normal LV size, borderline concentric LVH, normal LV systolic function, EF 63%, with no wall motion abnormality noted. Unable to assess diastolic dysfunction, RV normal size, LA is moderately dilated, RA is mild to moderately dilated, moderate mitral annular calcification, mild mitral valve regurgitation. No MS, mild TR, RVSP was estimated at 49 mmHg, aortic root 3.0 cm, ascending aorta 3.2 , trivial pericardial effusion. ASSESSMENT AND PLAN: 1. Hypoxia: Patient noted to initially have saturations in the 80s on arrival , improved with oxygen therapy. Patient reporting fevers, chills, and cough for the last week. Chest x-ray shows no acute pneumonia, but question bronchitis. Potentially also mild congestive heart failure. I have discussed this with the hospitalist services, concerned with potential upper respiratory infection. They will further evaluate. I will give her 20 of Lasix at this time. 2. Paroxysmal atrial fibrillation: The patient recently restarted on Rythmol, self converted, and now back into atrial fibrillation. Questioning if potential upper respiratory infection may be causing returning of atrial fibrillation. At this time, she is fairly well rate controlled in comparison to the past week prior to starting antiarrhythmic therapy and diltiazem. Will continue on current medications. Depending on the workup for upper respiratory by hospitalist services, if no significant viral upper respiratory infection noted, then consideration of attempting cardioversion again. The patient will be made n.p.o. after midnight for this. She is on anticoagulation of warfarin. In reviewing her chart, she has been therapeutic for INRs for greater than a month. 3. Elevated white blood cell count: [place] potentially the patient has an upper respiratory infection. Defer to hospitalist for management. I have discussed this both with her primary interlocking and signal mechanic, Dr. Jc, Dr. Link of electrophysiology services, and Dr. Huntley, who are in agreement with plan. Will be glad to follow along with you. /[id number]/MODL MTDD
[2018-07-30] MEDS: PROPAFENONE HCL SR 225 MG CAP PO SCH (20:17)
[2018-07-31 04:48] LABS: PLATELET COUNT 358 10^3/uL (150-400)
[2018-07-31 04:58] LABS: INR 3.17 (0.83-1.16); PROTIME(PATIENT) 32.3 SEC (12.0-15.0)
[2018-07-31] MEDS: PROPAFENONE HCL SR 225 MG CAP PO SCH (08:21)
[2018-07-31] MEDS ORDERED: DILTIAZEM CD 120 MG CAP PO SCH (09:00)
[2018-07-31] MEDS ORDERED: PANTOPRAZOLE SODIUM 40 MG TAB PO SCH (09:00)
--- NOTE | 2018-07-31 09:00 | PDCARPN ---
Cardiology Progress Note Chief Complaint: Patient reports shortness of breath has improved. Assessment/Plan: Assessment: 83-year-old female with known history paroxysmal atrial fibrillation with RVR, ALLISON (CPAP at night), hypertension hyperlipidemia, GERD. Recent hospitalization for atrial fibrillation 1 week ago, started on antiarrhythmic therapy of propafenone in addition to diltiazem. Self converted last Thursday night. Admitted yesterday for complaints shortness of breath, fatigue, and reported fevers and chills. SpO2 on admission was in the 80s on room air. Noted to have mildly elevated BNP on admission of 744. Checks x-ray noted mildly fluid overloaded versus bronchitis. Elevated WBC of 12.85. Patient was fairly well rate control ventricular rates between 80-110. Echocardiogram done on 2017 showing normal LV size, borderline concentric LVH, normal LV size function with EF of 63% with no wall motion on a over teas. LA was moderately dilated, RA was mildly dilated, mild MR, mild TR, RVSP was estimated at 49 mm Hg. 07/31/2018: Patient remains in atrial fibrillation, rate varying between 90 and 120. She reports SOB has improved. Systolic blood pressure in 90s this morning. She denies of any chest pressure or pain. Reports no fevers or chills overnight. She has been normal thermic. BMP up today at 1640. Weight is down approximately 2 kilos from yesterday. O>I. Chest x-ray shows improvement from yesterday. Plan: 1. Persistent atrial fibrillation occasional rapid ventricular response: Rates are better controlled this hospitalization in comparison to 1 week ago on diltiazem and propafenone. It has been less than a week that she has been on antiarrhythmic therapy. Diastolic heart failure has contributes to her recurring AFib. At this time, we will plan for her to undergo cardioversion this morning. She has been NPO since midnight. Reviewing her INRs for the last month, she has been therapeutic. No need for DEVAUGHN. Depending on how she does post cardioversion, consideration of increasing diltiazem dosage. 2. Diastolic heart failure: BNP up, her atrial fibrillation could be contributing to elevated BNP. She has had good diuresis with IV Lasix yesterday. She has had weight loss. Output is greater than input. She appears fairly euvolemic at this time. Will start her on oral Lasix today, which should be continued as an outpatient. 3. ALLISON: CPAP at night. 4. Hypertension: Blood pressure well controlled on current medication regime. 07/31/18 08:35 Subjective: Patient denies of any chest pressure, pain, orthopnea, lightheadedness, near- syncope or syncopal events. Reviewed/Discussed With: other (Dr Rao) Objective: Vital Signs (8 Hrs) Temp Pulse Resp BP Pulse Ox 07/31/18 07:38 36.8 C 107 H 13 104/65 97 07/31/18 04:00 36.8 C 109 H 20 97/72 L 99 Intake/Output (24 Hrs) 07/30/18 07/31/18 08/01/18 05:59 05:59 05:59 Intake Total 1270 Output Total 1350 Balance -80 Intake: Oral (ml) 770 IV Infused (ml) 500 Output: Urine (ml) 1350 Toilet 1350 Other: Weight 84.2 kg Number of Voids Toilet 1 Result Diagrams: 07/31/18 03:48 07/31/18 03:48 - Physical Exam Constitutional: WDWN, no apparent distress, obese (Moderate) Ears, Nose, Mouth, Throat: moist mucous membranes Cardiovascular: systolic murmur (2/6 along left sternal border), irregularly irregular, jugular vein distention (4-5 cm above sternal), pulses symmetric bilat, No carotid bruit Peripheral Pulses: 1+: dorsalis-pedis (R), dorsalis-pedis (L), 2+: carotid (R), carotid (L) Respiratory: clear to auscultate bilat, no crackles, no wheezes Gastrointestinal: normoactive bowel sounds Skin: warm, No no edema (Trace pedal edema bilateral lower extremity) Musculoskeletal: no muscular tenderness Neurologic: AAOx3 Psychiatric: cooperative, interactive, following commands ICD10 Worksheet Patient Problems: Problems Problem Status Onset Atrial fibrillation Acute Congestive heart failure Acute
[2018-07-31] MEDS ORDERED: POTASSIUM CL 20 MEQ TAB PO SCH (09:45)
[2018-07-31] MEDS ORDERED: FUROSEMIDE 40 MG TAB PO SCH (09:45)
--- NOTE | 2018-07-31 09:55 | ASMTCMCOM ---
CM Note CM Note Notes: Patient admitted with SOB; she was recently d/c'ed from [facility] on 07/26. She has a history of A-fib and has new onset pedal edema. She will have a cardioversion today. Patient is normally independent, lives alone. Her daughter Amparo lives locally and is supportive. Discharge needs are TBD; PT eval is pending. Case Management will follow. Date Signed: 07/31/2018 09:54 AM Electronically Signed By:Ena Newberry RN
[2018-07-31] MEDS ORDERED: PROPOFOL 200 MG/20 ML VIAL ONE (10:32)
[2018-07-31] MEDS ORDERED: LIDOCAINE 2% 100 MG/5 ML SYR ONE (10:33)
[2018-07-31] MEDS ORDERED: SUCCINYLCHOLINE CHLORIDE 200 MG/10 ML SYR IVP ONE (10:33)
[2018-07-31] MEDS ORDERED: PHENYLEPHRINE HCL 100 MCG/ML SYR ONE (10:33)
--- NOTE | 2018-07-31 11:09 | PDANEPAE ---
ANE History of Present Illness a-fib s/f D/C Cv ANE Past Medical History - Cardiovascular History Hx Hypertension: Yes Hx Arrhythmias: Yes - Pulmonary History Hx Oxygen in Use at Home: Yes O2 in Use at Home (L/minute): 2 Hx Sleep Apnea: Yes - Endocrine History Hx Diabetes: No - GI History GERD: moderate - Chronic Pain History Chronic Pain: No ANE Review of Systems Review of Systems: - Exercise capacity METS (RN): 3 METS ANE Patient History - Allergies Allergies/Adverse Reactions: codeine Allergy (Severe, Verified 07/30/18 12:22) hydrocodone Allergy (Severe, Verified 07/30/18 12:22) Vomiting tramadol Allergy (Severe, Verified 07/30/18 12:22) Vomiting - Home Medications Home medications: home medication list seen and reviewed Home Medications: Omeprazole [Prilosec 20 mg] 40 mg PO DAILY 05/19/16 [Last Taken 07/30/18] Warfarin Sodium [Coumadin 4MG (*)] 4 mg PO SUMOTUTHFR 05/19/16 [Last Taken 07/30] Acetaminophen [Tylenol ES 500 mg (*)] 500 mg PO DAILY PRN 07/22/18 [Last Taken 07/16/18] C/E/Zn/Cu/OM3/DHA/EPA/LUT/ZEAX [Preservision Areds 2 Softgel] 1 each PO BID 10/08 [Last Taken 07/30/18] Diltiazem HCl [Cartia Xt] 120 mg PO DAILY 07/22/18 [Last Taken 07/30/18] Warfarin Sodium [Coumadin 2MG (*)] 2 mg PO WESA 07/22/18 [Last Taken 07/28/18] - NPO status NPO Status: no food or drink >8 hours - Anes Hx Anes Hx: no prior problems - Smoking Hx Smoking Status: Former smoker - Alcohol Use Alcohol Use: None - Family Anes Hx Family Anes Hx: none ANE Labs/Vital Signs - Labs Result Diagrams: 07/31/18 03:48 07/31/18 03:48 - Vital Signs Blood Pressure: 104/65 Heart Rate: 107 Respiratory Rate: 13 O2 Sat (%): 97 Height: 154.94 cm Weight: 84.2 kg ANE Physical Exam - Airway Neck exam: decreased ROM Mallampati Score: Class 2 Mouth exam: poor dentition - Pulmonary Pulmonary: no respiratory distress - Cardiovascular Cardiovascular: irregularly irregular - ASA Status ASA Status: III ANE Anesthesia Plan Anesthesia Plan: GA with mask Total IV Anesthesia: Yes Urgent/Emergent Case: Gil soto completed preop but documented later for safe timely pt care
--- NOTE | 2018-07-31 11:11 | POSTANESTH ---
Post Anesthetic Evaluation Cardiovascular Status: Normal, Stable Respiratory Status: Normal, Stable Level of Consciousness/Mental Status: Can Participate in Eval Pain Control: Adequate, Prn Tx Ordered Nausea/Vomiting Control: Adequate, Prn Tx Ordered Complications Possibly Related to Anesthesia: None Noted
--- NOTE | 2018-07-31 13:16 | HOSPPROG ---
Hospitalist Progress Note Assessment/Plan: #CHF-E, diastolic #Hypoxemia #Afib, acute on chronic -s/p cardioversion today #Weakness #AC-chronic #ALLISON: CPAP HS Plan: -cont Diltiazem and Rythmol -start PO Lasix -cont warfarin -Monitor overnight, change to inpatient. PT/OT Subjective: still with pedal edema. Had cardioversion this morning. no cp or sob. Objective: Vital Signs Temp Pulse Resp BP Pulse Ox 36.4 C 66 15 120/57 L 98 07/31/18 11:56 07/31/18 11:56 07/31/18 11:56 07/31/18 11:56 07/31/18 11:56 Laboratory Results 07/31/18 03:48 07/31/18 03:48 07/30/18 07/31/18 08/01/18 05:59 05:59 05:59 Intake Total 1270 Output Total 1350 Balance -80 PT 32.3 SEC (12.0-15.0) H 07/31/18 03:48 INR 3.17 (0.83-1.16) H 07/31/18 03:48 - Physical Exam Constitutional: no apparent distress Eyes: PERRL, EOMI Ears, Nose, Mouth, Throat: moist mucous membranes, hearing normal Cardiovascular: regular rate and rhythym, edema Respiratory: no respiratory distress, no rales or rhonchi, clear to auscultation Gastrointestinal: normoactive bowel sounds, soft, non-tender abdomen Skin: warm Neurologic: AAOx3 Psychiatric: interacting appropriately, not anxious, not encephalopathic Lymph, Heme, Immunologic: No petechiae ICD10 Worksheet Patient Problems: Problems Problem Status Onset Atrial fibrillation Acute Congestive heart failure Acute
--- NOTE | 2018-07-31 13:35 | PDMN ---
Medical Necessity Medical necessity: Change to inpt as of 07/31/18 @ 1318. Pt meets inpt criteria per MD order and MCG M-505, Atrial Fibrillation. 83 y/o presented w/shortness of breath, weakness, and bilat LE edema, admitted w/CHF, Afib-acute on chronic , and hypoxemia. Persistent sob needing 3L suppl O2, persistent Afb today w/RVR requiring cardioversion, monitor on Diltiazem and Rhythmol, BNP trending up today to 1640. Est LOS>2MN for further med nec eval/management of above.
--- NOTE | 2018-07-31 15:23 | PDDCSUM ---
Discharge Summary Discharge Summary: The pt is a 83 yo female with Afib who was admitted with Afib and CHF-E. She was diuresed. She was started on Lasix. She was cardioverted. She is now ready for discharge. Lasix was added to her medication regimen. no other changes were made. She is to f/u with her PCP next week and cardiology in 2-3 weeks DDX: #CHF-E, diastolic #Hypoxemia #Afib, acute on chronic -s/p cardioversion today #Weakness #AC-chronic #ALLISON: CPAP HS Exam: see todays progress note meds: see med rec total time spent on d/c is 35 mins. D/w Dr. Rao
[2018-07-31 15:28] VITALS: BP 103/61
[2018-07-31] MEDS ORDERED: WARFARIN SODIUM 2 MG TAB PO ONE (16:00)
--- NOTE | 2018-07-31 22:07 | CPR ---
DATE OF PROCEDURE: 07/31/2018 PROCEDURE PERFORMED: Direct current cardioversion. INDICATION FOR PROCEDURE: Symptomatic atrial fibrillation with rapid ventricular response. DESCRIPTION OF PROCEDURE: After informed consent was obtained for cardioversion as well as anesthesi a, patient was sedated with propofol with assistance of Dr. Tru Goel of Anesthesia. Once appropria te level of sedation was achieved, the patient was shocked with a single biphasic synchronized shock of 200 joules with lutheran of sinus rhythm at approximately 57 beats per minute. She tolerated t he procedure well. There were no postoperative complications. Of note, INRs had been checked prior to cardioversion. Her INR has been therapeutic since March 2018. INR this morning was 3.14. PLAN: We will continue current rhythm control strategy with Rythmol and diltiazem. Will continue lo ng-term anticoagulation with Coumadin with goal INR between 2 and 3. /[id number]/MODL
--- NOTE | 2018-08-01 08:47 | CPEKG ---
Test Reason : OPEN Blood Pressure : / mmHG Vent. Rate : 063 BPM Atrial Rate : 063 BPM P-R Int : 193 ms QRS Dur : 104 ms QT Int : 417 ms P-R-T Axes : 050 040 -02 degrees QTc Int : 427 ms Sinus rhythm Left atrial enlargement Nonspecific ST and T wave abnormality Inferior Q waves noted Confirmed by Gordo Squires ([id number]) on 08/01/2018 8:47:14 AM Referred By: Confirmed By:Gordo Squires
== END 2018-07-31 17:53 | disposition home or self-care (01) ==
LOC: INTOOBSV 11:25 → F2W 13:05 → INTOOBSV 07-31 13:18 → OBSVTOIN 07-31 13:18
PROVIDERS: ADMIT Internal Medicine; ATTEND Family Medicine
PROC: 5A2204Z Restoration of Cardiac Rhythm, Single (ICD-10-PCS; principal; 2018-07-31)
DX: I48.1 Persistent atrial fibrillation (principal); I50.30 Unspecified diastolic (congestive) heart failure; R09.02 Hypoxemia; R53.1 Weakness; D72.829 Elevated white blood cell count, unspecified; E86.9 Volume depletion, unspecified; G47.33 Obstructive sleep apnea (adult) (pediatric); K21.9 Gastro-esophageal reflux disease without esophagitis; I11.0 Hypertensive heart disease with heart failure; J44.9 Chronic obstructive pulmonary disease, unspecified; E78.5 Hyperlipidemia, unspecified; M48.061 Spinal stenosis, lumbar region without neurogenic claudication; Z79.01 Long term (current) use of anticoagulants; Z87.891 Personal history of nicotine dependence; Z82.49 Family history of ischemic heart disease and other diseases of the circulatory system
CPT/HCPCS: 71045; 93005; 96374; 96376; 99285; G0378; J1940; J2001; J2370; J2704; 84484-PO; J0330

== ENCOUNTER 2018-08-03 11:34 | Emergency (ER) | payer OTHER ==
[~2018-08-03 11:34] MED LIST: PROPAFENONE HCL SR 325 MG CAP PO SCH
--- NOTE | 2018-08-03 12:24 | EDPHY ---
H & P Stated Complaint: afib intermittently for 2 weeks Time Seen by Provider: 08/03/18 11:44 HPI/ROS: CHIEF COMPLAINT: Intermittent atrial fibrillation HISTORY OF PRESENT ILLNESS: The patient is referred back to the emergency department by her primary care provider for recurrent atrial fibrillation. She was recently admitted to the hospital and started on Rythmol and diltiazem following a cardioversion. The patient is continued to have symptoms of an ongoing palpitations fatigue and slight dyspnea. Patient denies any overt chest pain. She was seen by her primary care provider today and noted to be in recurrent atrial fibrillation with heart rate 110-120 and referred back to the ED. She currently is anticoagulated. She has no additional acute complaints of fever, cough, congestion or headache. REVIEW OF SYSTEMS: A comprehensive 10 point review of systems is otherwise negative aside from elements mentioned in the history of present illness. Source: Patient Exam Limitations: No limitations - Personal History Current Tetanus Diphtheria and Acellular Pertussis (TDAP): No - Medical/Surgical History Hx Asthma: No Hx Chronic Respiratory Disease: Yes Hx Diabetes: No Hx Cardiac Disease: Yes Hx Renal Disease: No Hx Cirrhosis: No Hx Alcoholism: No Hx HIV/AIDS: No Hx Splenectomy or Spleen Trauma: No Other PMH: A fib, GERD, macular degeneration, HTN, L-spine stenosis, COPD - Social History Smoking Status: Former smoker - Physical Exam Exam: General Appearance: Alert, no distress Eyes: Pupils equal and round no pallor or injection ENT, Mouth: Mucous membranes moist Respiratory: There are no retractions, lungs are clear to auscultation Cardiovascular: Irregular rate Gastrointestinal: Abdomen is soft and nontender, no masses, bowel sounds normal Neurological: A&O, normal motor function, normal sensory exam, normal cranial nerves Skin: Warm and dry, no rashes Musculoskeletal: Neck is supple nontender Extremities: symmetrical, full range of motion Constitutional: Initial Vital Signs Temperature (C) 36.6 C 08/03/18 11:39 Heart Rate 118 H 08/03/18 11:39 Respiratory Rate 20 08/03/18 11:39 Blood Pressure 99/81 H 08/03/18 11:39 O2 Sat (%) 92 08/03/18 11:39 O2 Delivery Mode Nasal Cannula O2 (L/minute) 2 Allergies/Adverse Reactions: codeine Allergy (Severe, Verified 08/03/18 11:38) hydrocodone Allergy (Severe, Verified 08/03/18 11:38) Vomiting tramadol Allergy (Severe, Verified 08/03/18 11:38) Vomiting Home Medications: Medication Instructions Recorded Omeprazole [Prilosec 20 mg] 40 mg PO DAILY 05/19/16 Warfarin Sodium [Coumadin 4MG (*)] 4 mg PO SUMOTUTHFR 05/19/16 Acetaminophen [Tylenol ES 500 mg 500 mg PO DAILY PRN 07/22/18 (*)] C/E/Zn/Cu/OM3/DHA/EPA/LUT/ZEAX 1 each PO BID 07/22/18 [Preservision Areds 2 Softgel] Diltiazem HCl [Cartia Xt] 120 mg PO DAILY 07/22/18 Warfarin Sodium [Coumadin 2MG (*)] 2 mg PO WESA 07/22/18 Propafenone HCl Sr [Rythmol Sr 225 mg PO Q12HRS #14 cap 07/26/18 225mg (*)] Furosemide [Lasix 40 MG (*)] 40 mg PO DAILY #30 tab 07/31/18 Propafenone HCl 08/03/18 Medical Decision Making - Diagnostics EKG Interpretation: EKG: Complete interpretation has been separately recorded in the [email or web address] archive. Summary impression: Atrial fibrillation, rate 118, nonspecific ST T wave changes noted ED Course/Re-evaluation: I reviewed the patient's past medical records and discussed her case with Dr. Hutchison from Cardiology. At this point time he is recommending that her Rythmol be increased to 325 mg twice daily. The cardiology office will contact the patient tomorrow to schedule a follow-up visit. She will be discharged from the ED at this point time. Departure - Departure Disposition: Home, Routine, Self-Care Clinical Impression: Atrial fibrillation Condition: Good Instructions: A-fib (Atrial Fibrillation) (ED) Additional Instructions: 1. Please increase your Rythmol to 325 mg twice a day. 2. Cardiology will contact you to schedule a follow-up visit in the next 1-2 days. If you do not hear from them tomorrow please contact their office to schedule a follow-up visit. 3. Return to the ED for significant chest pain, shortness of breath, lightheadedness or weakness Referrals: Stewart Salamanca MD [Primary Care Provider] - As per Instructions
[2018-08-03] MEDS ORDERED: PROPAFENONE HCL SR 325 MG CAP PO ONE (13:32)
--- NOTE | 2018-08-03 14:06 | CPEKG ---
Test Reason : OPEN Blood Pressure : / mmHG Vent. Rate : 118 BPM Atrial Rate : 152 BPM P-R Int : 204 ms QRS Dur : 108 ms QT Int : 344 ms P-R-T Axes : 000 061 -60 degrees QTc Int : 483 ms Atrial fibrillation Confirmed by Kulwinder Patel ([id number]) on 08/03/2018 2:06:07 PM Referred By: Confirmed By:Kulwinder Patel
[2018-08-03 14:19] VITALS: BP 106/77
== END 2018-08-03 14:35 | disposition home or self-care (01) ==
DX: I48.91 Unspecified atrial fibrillation (principal); J44.9 Chronic obstructive pulmonary disease, unspecified; I10 Essential (primary) hypertension; Z79.01 Long term (current) use of anticoagulants; Z87.891 Personal history of nicotine dependence

== ENCOUNTER 2018-09-06 10:24 | Day surgery (SDC) | payer OTHER ==
[~2018-09-06 10:24] MED LIST changes: +LIDOCAINE/PRILOCAINE 1 EACH CRTUBE TP SCH; -PROPAFENONE HCL SR 325 MG CAP PO SCH
[2018-09-06] MEDS ORDERED: fentaNYL 100 MCG/2 ML INJ IVP ONE (10:31)
[2018-09-06] MEDS ORDERED: ATROPINE SULFATE 1 MG/10 ML SYR IVP ONE (10:31)
[2018-09-06] MEDS ORDERED: MIDAZOLAM 2 MG/2 ML VIAL IVP ONE (10:31)
[2018-09-06] MEDS ORDERED: BENZOCAINE UNIT DOSE SPRAY HURRICAINE MM ONE (10:31)
[2018-09-06] MEDS ORDERED: NS 500 ML IV ONE (10:31)
[2018-09-06 11:32] LABS: INR 2.38 (0.83-1.16)
--- NOTE | 2018-09-06 11:44 | PDGENHP ---
History & Physical Chief Complaint: Symptomatic atrial fibrillation, palpitations Relevant Physical Exam: S1-S2 irregular. Lungs clear to auscultation. Alert an oriented x3 Cardiorespiratory Assessment: Started on amiodarone, plan DEVAUGHN guided cardioversion
--- NOTE | 2018-09-06 12:12 | PDANEPAE ---
ANE History of Present Illness A-fib ANE Past Medical History - Cardiovascular History Hx Hypertension: Yes Hx Arrhythmias: Yes - Pulmonary History Hx Oxygen in Use at Home: Yes Hx Sleep Apnea: Yes - Endocrine History Hx Diabetes: No - Chronic Pain History Chronic Pain: No ANE Review of Systems Review of Systems: ANE Patient History - Allergies Allergies/Adverse Reactions: codeine Allergy (Severe, Verified 08/03/18 11:38) hydrocodone Allergy (Severe, Verified 08/03/18 11:38) Vomiting tramadol Allergy (Severe, Verified 08/03/18 11:38) Vomiting losartan Allergy (Verified 09/06/18 11:13) propafenone [From Rythmol] Allergy (Verified 09/06/18 11:13) LISINIPRIL Allergy (Uncoded 09/06/18 11:13) - Home Medications Home medications: home medication list seen and reviewed Home Medications: Omeprazole [Prilosec 20 mg] 40 mg PO DAILY 05/19/16 [Last Taken 09/05/18 08:00] Warfarin Sodium [Coumadin 4MG (*)] 4 mg PO SUMOTUTHFR 05/19/16 [Last Taken 09/05 08:00] Acetaminophen [Tylenol ES 500 mg (*)] 500 mg PO DAILY PRN 07/22/18 [Last Taken 07/20/18 21:00] C/E/Zn/Cu/OM3/DHA/EPA/LUT/ZEAX [Preservision Areds 2 Softgel] 1 each PO BID 10/08 [Last Taken 09/06/18 08:00] Warfarin Sodium [Coumadin 2MG (*)] 2 mg PO WESA 07/22/18 [Last Taken 09/06/18 08 :00] Amiodarone HCl 200 mg PO DAILY 09/06/18 [Last Taken 09/06/18 08:00] Potassium Chloride 10 meq PO DAILY 09/06/18 [Last Taken 09/05/18 08:00] - NPO status NPO Status: no food or drink >8 hours - Anes Hx Anes Hx: no prior problems - Smoking Hx Smoking Status: Former smoker ANE Labs/Vital Signs - Labs Result Diagrams: 09/06/18 11:00 - Vital Signs Height: 154.94 cm Weight: 83.007 kg ANE Physical Exam - Airway Neck exam: FROM Mallampati Score: Class 2 Mouth exam: normal dental/mouth exam - Pulmonary Pulmonary: no rales or rhonchi - Cardiovascular Cardiovascular: irregularly irregular - ASA Status ASA Status: III ANE Anesthesia Plan Anesthesia Plan: MAC
[2018-09-06] MEDS ORDERED: LIDOCAINE 1% 5 ML SDV ONE (12:18)
[2018-09-06] MEDS ORDERED: PROPOFOL 200 MG/20 ML VIAL ONE ×2 (12:18→12:19)
--- NOTE | 2018-09-06 12:53 | PDTEE1 ---
DEVAUGHN Cardioversion Procedure Procedure: electrical cardioversion, transesophageal echo Indications: atrial fibrillation Consent: signed and in chart Anticoagulation: warfarin Procedural Details: Pads were placed in anterior-posterior position. DEVAUGHN probe was advanced and standard images obtained. There is no evidence of left atrial or left atrial appendage thrombus. Synchronized cardioversion attempt #1: 100J Results: normal sinus rhythm Conclusions: successful DEVAUGHN cardioversion (Normal EF, moderate MR, PFO) Patient Problems: Problems Problem Status Onset Atrial fibrillation Acute Congestive heart failure Acute
--- NOTE | 2018-09-06 12:57 | POSTANESTH ---
Post Anesthetic Evaluation Cardiovascular Status: Similar to Pre-Op Cond Respiratory Status: Similar to Pre-op Cond. Level of Consciousness/Mental Status: Alert and Oriented Pain Control: Adequate, Prn Tx Ordered Nausea/Vomiting Control: Adequate, Prn Tx Ordered Complications Possibly Related to Anesthesia: None Noted
[2018-09-06] MEDS ORDERED: LIDOCAINE/PRILOCAINE 1 EACH CRTUBE TP ONE (13:58)
--- NOTE | 2018-09-07 06:12 | CPEKG ---
Test Reason : OPEN Blood Pressure : / mmHG Vent. Rate : 132 BPM Atrial Rate : 170 BPM P-R Int : 127 ms QRS Dur : 098 ms QT Int : 323 ms P-R-T Axes : 082 082 -59 degrees QTc Int : 479 ms Atrial fibrillation Repolarization abnormality, prob rate related Confirmed by Edwin Sanchez ([id number]) on 09/07/2018 6:11:59 AM Referred By: Confirmed By:Edwin Sanchez
--- NOTE | 2018-09-07 06:14 | CPEKG ---
Test Reason : OPEN Blood Pressure : / mmHG Vent. Rate : 067 BPM Atrial Rate : 067 BPM P-R Int : 181 ms QRS Dur : 106 ms QT Int : 437 ms P-R-T Axes : 054 056 015 degrees QTc Int : 462 ms Sinus rhythm Confirmed by Edwin Sanchez ([id number]) on 09/07/2018 6:14:09 AM Referred By: Confirmed By:Edwin Sanchez
== END 2018-09-06 14:48 | disposition home or self-care (01) ==
LOC: FCATH 10:24
PROVIDERS: ATTEND Internal Medicine Cardiovascular Disease
DX: I48.0 Paroxysmal atrial fibrillation (principal); K21.9 Gastro-esophageal reflux disease without esophagitis; E78.5 Hyperlipidemia, unspecified; I10 Essential (primary) hypertension; M48.061 Spinal stenosis, lumbar region without neurogenic claudication; G47.33 Obstructive sleep apnea (adult) (pediatric); E55.9 Vitamin D deficiency, unspecified; H35.30 Unspecified macular degeneration; Z79.01 Long term (current) use of anticoagulants; Z87.891 Personal history of nicotine dependence; Z82.49 Family history of ischemic heart disease and other diseases of the circulatory system
CPT/HCPCS: J2704

== ENCOUNTER → 2018-09-15 | Outpatient (CLI) | payer OTHER | LOC: CIMAGING 10:08 | PROVIDERS: ATTEND Internal Medicine | DX: Z12.31 Encounter for screening mammogram for malignant neoplasm of breast (principal) ==

== ENCOUNTER 2018-10-04 06:15 | Observation (INO) | payer OTHER ==
[2018-10-04] MEDS ORDERED: NS 1,000 ML IV ONE (06:22)
[2018-10-04] MEDS ORDERED: ceFAZolin 2 GM/DEXTROSE 100 ML IV ONE (06:22)
[2018-10-04] MEDS ORDERED: BACITRACIN IRRIGATION/NS 50,000 UNITS/1,000 ML BTL IRR ONE (06:22)
[2018-10-04 07:40] LABS: PLATELET COUNT 299 10^3/uL (150-400)
[2018-10-04] MEDS ORDERED: BUPIVACAINE 0.75% 10 ML SDV ONE (07:42)
[2018-10-04] MEDS ORDERED: LIDOCAINE 1% 300 MG/30 ML SDV ONE (07:42)
[2018-10-04] MEDS ORDERED: HEPARIN 10,000 UNIT/10 ML MDV (1,000 UNIT/ML) ONE (07:43)
[2018-10-04 07:56] LABS: INR 1.45 (0.83-1.16); PROTIME(PATIENT) 17.8 SEC (12.0-15.0)
--- NOTE | 2018-10-04 08:25 | PDGENHP ---
History & Physical Chief Complaint: Persistent atrial fibrillation with RVR History of Present Illness: Persistent atrial fibrillation with difficult to control ventricular rates. Relevant Physical Exam: General: A&Ox4, no apparent distress. Respiratory: CTA. Cardiac: Irregularly irregular, S1, S2. Extremities: Normal exam, no edema
--- NOTE | 2018-10-04 08:30 | CPEKG ---
Test Reason : OPEN Blood Pressure : / mmHG Vent. Rate : 120 BPM Atrial Rate : 185 BPM P-R Int : 120 ms QRS Dur : 102 ms QT Int : 344 ms P-R-T Axes : 000 079 -44 degrees QTc Int : 486 ms Atrial fibrillation Borderline prolonged QT interval Confirmed by Farhan Singh ([id number]) on 10/04/2018 8:30:23 AM Referred By: Confirmed By:Farhan Singh
[2018-10-04] MEDS ORDERED: PROMETHAZINE HCL 25 MG/ML INJ IVP PRN (08:31)
[2018-10-04] MEDS ORDERED: NALOXONE HCL 0.4 MG/ML INJ IVP PRN (08:31)
[2018-10-04] MEDS ORDERED: fentaNYL 100 MCG/2 ML INJ IVP PRN (08:31)
[2018-10-04] MEDS ORDERED: ACETAMINOPHEN 500 MG TAB PO PRN (08:31)
[2018-10-04] MEDS ORDERED: ONDANSETRON 4 MG/2 ML VIAL IVP PRN (08:31)
[2018-10-04] MEDS ORDERED: DEXAMETHASONE 4 MG/ML VIAL IVP PRN (08:31)
--- NOTE | 2018-10-04 08:31 | PDANEPAE ---
ANE Past Medical History - Cardiovascular History Hx Hypertension: Yes Hx Arrhythmias: Yes - Pulmonary History Hx Oxygen in Use at Home: Yes Hx Sleep Apnea: Yes - Endocrine History Hx Diabetes: No Obesity: moderate - Chronic Pain History Chronic Pain: No ANE Review of Systems Review of Systems: ANE Patient History - Allergies Allergies/Adverse Reactions: codeine Allergy (Severe, Verified 08/03/18 11:38) hydrocodone Allergy (Severe, Verified 08/03/18 11:38) Vomiting tramadol Allergy (Severe, Verified 08/03/18 11:38) Vomiting losartan Allergy (Verified 09/06/18 11:13) propafenone [From Rythmol] Allergy (Verified 09/06/18 11:13) LISINIPRIL Allergy (Uncoded 09/06/18 11:13) - Home Medications Home medications: home medication list seen and reviewed Home Medications: Omeprazole [Prilosec 20 mg] 40 mg PO DAILY 05/19/16 [Last Taken 10/03/18 09:00] C/E/Zn/Cu/OM3/DHA/EPA/LUT/ZEAX [Preservision Areds 2 Softgel] 1 each PO BID 10/08 [Last Taken 10/03/18 09:00] Amiodarone HCl [Pacerone (*)] 200 mg PO DAILY 09/27/18 [Last Taken 10/03/18 09: 00] Metoprolol Tartrate [Lopressor 25 mg (*)] 25 mg PO BID 09/27/18 [Last Taken 21:00] Potassium Cl [Klor-Con 20 meq (*)] 40 meq PO DAILY 09/27/18 [Last Taken 09:00] Warfarin Sodium [Coumadin 4MG (*)] 2 mg PO SUMOTUWETHFR@09/27/18 [Last Taken 09/25/18 09:00] Warfarin Sodium [Coumadin 4MG (*)] 4 mg PO SA@09/27/18 [Last Taken 10/01/18 09:00] - NPO status NPO Status: no food or drink >8 hours - Anes Hx Anes Hx: no prior problems - Smoking Hx Smoking Status: Former smoker ANE Labs/Vital Signs - Labs Result Diagrams: 10/04/18 06:50 10/04/18 06:50 - Vital Signs Height: 155 cm Weight: 83 kg ANE Physical Exam - Airway Neck exam: FROM Mallampati Score: Class 2 Mouth exam: normal dental/mouth exam - Pulmonary Pulmonary: no respiratory distress, no rales or rhonchi, clear to auscultation - Cardiovascular Cardiovascular: irregularly irregular, tachycardia - ASA Status ASA Status: III ANE Anesthesia Plan Anesthesia Plan: general endotracheal anesthesia
[2018-10-04] MEDS ORDERED: fentaNYL 100 MCG/2 ML INJ ONE (08:51)
[2018-10-04] MEDS ORDERED: PROPOFOL 200 MG/20 ML VIAL ONE (08:51)
[2018-10-04] MEDS ORDERED: SUCCINYLCHOLINE CHLORIDE 200 MG/10 ML SYR IVP ONE (08:52)
[2018-10-04] MEDS ORDERED: ONDANSETRON 4 MG/2 ML VIAL ONE (08:52)
[2018-10-04] MEDS ORDERED: LIDOCAINE 2% JELLY 5 ML TUBE ONE (08:52)
[2018-10-04] MEDS ORDERED: IOPAMIDOL (ISOVUE-300) 100 ML BTL ONE (09:01)
[2018-10-04] MEDS ORDERED: PHENYLEPHRINE HCL 100 MCG/ML SYR ONE (09:03)
[2018-10-04] MEDS ORDERED: PHENYLEPHRINE 10 MG/ML SDV ONE (09:18)
[2018-10-04] MEDS ORDERED: ePHEDrine SULFATE 25 MG/5 ML SYR ONE (09:42)
[2018-10-04] MEDS ORDERED: LIDOCAINE 2% 5 ML SDV ONE (09:59)
--- NOTE | 2018-10-04 10:10 | EPPROC ---
Electrophysiology Procedure Note: IMPLANTATION OF MEDTRONIC MICRA LEADLESS PACEMAKER Patient was brought to the EP lab in fasting nonsedated state. Anesthesiologist Dr. Dubose administered anesthesia. Right femoral vein was accessed using modified Seldinger technique under ultrasound guidance. A [id number] stitch was placed around the wire. 1 cm incision was made at the entry site and dilated appropriately. 8 Guamanian sheath was placed in the right femoral vein. Venogram was done to confirm appropriate size of vein for large sheath and to rule out anatomic aberrations. All sheath and catheter manipulations were performed under biplane fluoroscopy. Heparin 4000 units was administered intravenously. Moreover heparinized saline was infused through the side port of the Micra sheath at 150 mL/hour. 0.035 in J guidewire was advanced to the superior vena cava. Over this a 5 Guamanian straight glide catheter was advanced into the superior vena cava. J guidewire was exchanged for a [employer] stiff guidewire. Tract was pre-dilated with 14 and 20 Fr dilators. Micra 27 Fr sheath was flushed and advanced to the mid right atrium under fluoroscopy and the guidewire and dilator were removed. Micra delivery system was flushed according to instructions and advanced into the Micra sheath. Micra sheath was pulled back into the inferior vena cava. Micra delivery system was advanced through the tricuspid valve into the right ventricle. Appropriate location for pacemaker placement was identified. Right ventriculogram was performed in two views. Delivery system was advanced further , device was deployed. Multiple cine - angiography views were obtained during tug test to confirm that 2 of 4 tines were appropriately deployed. Device parameters were checked and found to be excellent. Device parameters were re-checked after 5 min and since they were stable, the retaining suture was cut and gently pulled out. Device remained in stable location after suture was removed. Device parameters remained unchanged with expected slight increase in impedance. 27 Guamanian sheath was removed and figure of 8 suture was applied around the femoral access site. Manual pressure was also applied. Patient left the EP lab in stable condition. There were no immediate complications. Device Medtronic Micra [id number] Placement RV Septum, distal R wave 6.8 mV Impedance 2170 ohm Threshold 0.38 @ 0.24 ms Patient Problems: Problems Problem Status Onset Atrial fibrillation Acute Congestive heart failure Acute
--- NOTE | 2018-10-04 10:57 | POSTANESTH ---
Post Anesthetic Evaluation Cardiovascular Status: Similar to Pre-Op Cond Respiratory Status: Similar to Pre-op Cond. Level of Consciousness/Mental Status: Can Participate in Eval, Mildly Sleepy, Arousable Pain Control: Adequate, Prn Tx Ordered Nausea/Vomiting Control: Adequate, Prn Tx Ordered Complications Possibly Related to Anesthesia: None Noted
[2018-10-04] MEDS ORDERED: WARFARIN SODIUM 4 MG TAB PO SCH (16:00)
[2018-10-04] MEDS: PRESERVISION AREDS2 FORMULA EYE VIT 1 EACH PO SCH (20:48)
[2018-10-04] MEDS: METOPROLOL TARTRATE 25 MG TAB PO SCH (20:48)
[2018-10-05 05:31] LABS: INR 1.42 (0.83-1.16); PROTIME(PATIENT) 17.5 SEC (12.0-15.0)
[2018-10-05 05:33] LABS: PLATELET COUNT 247 10^3/uL (150-400)
[2018-10-05] MEDS ORDERED: AMIODARONE HCL 200 MG TAB PO SCH (09:00)
[2018-10-05] MEDS ORDERED: POTASSIUM CL 20 MEQ TAB PO SCH (09:00)
[2018-10-05] MEDS ORDERED: PANTOPRAZOLE SODIUM 40 MG TAB PO SCH (09:00)
[2018-10-05] MEDS ORDERED: FUROSEMIDE 40 MG TAB PO SCH (09:00)
[2018-10-05] MEDS: PRESERVISION AREDS2 FORMULA EYE VIT 1 EACH PO SCH (09:37)
[2018-10-05] MEDS: METOPROLOL TARTRATE 25 MG TAB PO SCH (09:37)
--- NOTE | 2018-10-05 10:59 | CPEKG ---
Test Reason : OPEN Blood Pressure : / mmHG Vent. Rate : 101 BPM Atrial Rate : 155 BPM P-R Int : 150 ms QRS Dur : 104 ms QT Int : 415 ms P-R-T Axes : 000 072 -50 degrees QTc Int : 538 ms Atrial fibrillation Confirmed by Edwin Sanchez ([id number]) on 10/05/2018 10:58:49 AM Referred By: Confirmed By:Edwin Sanchez
--- NOTE | 2018-10-05 11:04 | CPEKG ---
Test Reason : OPEN Blood Pressure : / mmHG Vent. Rate : 113 BPM Atrial Rate : 164 BPM P-R Int : 149 ms QRS Dur : 097 ms QT Int : 342 ms P-R-T Axes : 174 083 -32 degrees QTc Int : 469 ms Atrial fibrillation Confirmed by Edwin Sanchez ([id number]) on 10/05/2018 11:04:00 AM Referred By: Confirmed By:Edwin Sanchez
[2018-10-05 11:39] VITALS: BP 110/62
--- NOTE | 2018-10-06 05:32 | GDS ---
SUPERVISING DISASTER RESPONSE DIRECTOR: August Link MD. ADMISSION DIAGNOSES: Atrial fibrillation. DISCHARGE DIAGNOSES: 1. Atrial fibrillation. 2. Implant of Micra leadless pacemaker. PROCEDURES PERFORMED DURING HOSPITALIZATION: 1. Electrocardiogram. 2. Implantation of Medtronic Micra leadless pacemaker. HOSPITAL COURSE: The patient presented October 04, 2018, for implant of a Micra leadless pacemaker in anticipation of upcoming AV node ablation to manage atrial fibrillation with rapid ventricular rates which has been difficult to control and are increasingly symptomatic. She underwent device implant without issue and has done very well in the post procedure period. She has been up ambulating this morning and denies any new or concerning symptoms. She is appropriate and stable for discharge home today. CURRENT PHYSICAL EXAMINATION: GENERAL: She is alert and oriented x4. No apparent distress. VITAL SIGNS: Blood pressure 104/66, heart rate 103, SpO2 of 90% on room air, temp 37, respiratory rate 18. RESPIRATORY: Lungs are clear to auscultation without adventitious breath sounds. CARDIAC: Normal S1 and S2. Rhythm is irregularly irregular. ABDOMEN: Normoactive bowel sounds times all 4 quadrants. No masses or tenderness. Abdomen is soft and nontender. SKIN: [place], warm, dry, without cyanosis, clubbing, or peripheral edema. EXTREMITIES: Right purse string suture removed intact, stable ecchymosis without new bleeding or hematoma to the site. Pulses are 2+ bilaterally. No edema. LABORATORY STUDIES: Drawn today: CBC is stable and BMP is stable compared to preprocedure. INR at 1.42. PROCEDURES: Implant of Micra leadless pacemaker as described above. EKG this morning demonstrates atrial fibrillation with rapid ventricular rates. DISCHARGE DISPOSITION: Patient will be discharged home in stable condition. She is on activity restrictions as below. DISCHARGE MEDICATIONS: Please see discharge medication reconciliation sheet for full details. Patient has been restarted on all of her home medications, and no new medications have been started this hospitalization. DISCHARGE INSTRUCTIONS: Post leadless pacemaker instructions reviewed with patient in detail. We discussed activity restrictions including lifting no more than 10 pounds and avoidance of submerged bathing for 10 days. She will get up and walk around every 45 minutes for 45 days. She understands that she needs to splint her right groin with firm pressure if she is coughing or bearing down for any reason. She should not strain during bowel movements and should instead use laxatives if she experiences any constipation in the post procedure period. We also reviewed bleeding precautions, medication compliance, monitoring for signs and symptoms of infection, and monitoring for sustained arrhythmia. At the time of discharge, patient verbalizes understanding of all discharge instructions without questions or concerns. She is scheduled for AV node ablation November 03, and she will contact our clinic with any new or concerning symptoms prior to this procedure. /[id number]/MODL MTDD
[2018-10-09] MEDS ORDERED: WARFARIN SODIUM 4 MG TAB PO SCH (16:00)
== END 2018-10-05 11:35 | disposition home or self-care (01) ==
LOC: FCATH 06:15 → F2N 10:38 → INTOOBSV 10:38
PROVIDERS: ADMIT Internal Medicine Cardiovascular Disease; ATTEND Internal Medicine Cardiovascular Disease
PROC: 02HK3NZ Insertion of Intracardiac Pacemaker into Right Ventricle, Percutaneous Approach (ICD-10-PCS; principal; 2018-10-04)
DX: I48.1 Persistent atrial fibrillation (principal); Z00.6 Encounter for examination for normal comparison and control in clinical research program; I10 Essential (primary) hypertension; G47.33 Obstructive sleep apnea (adult) (pediatric); E66.09 Other obesity due to excess calories; Z68.34 Body mass index [BMI] 34.0-34.9, adult
CPT/HCPCS: 33274; 71046; 93005; C1731; C1769; C1786; G0378; J0330; J0690; J1644; J2370; J2405; J2704; J3010; Q9967

== ENCOUNTER 2018-11-03 06:06 | Observation (INO) | payer OTHER ==
--- NOTE | 2018-10-04 08:28 | PDANEPAE ---
ANE Past Medical History - Cardiovascular History Hx Hypertension: Yes Hx Arrhythmias: Yes - Pulmonary History Hx COPD: No Hx Oxygen in Use at Home: Yes Hx Sleep Apnea: Yes - Endocrine History Hx Diabetes: No Obesity: moderate - Chronic Pain History Chronic Pain: No ANE Review of Systems Review of Systems: ANE Patient History - Allergies Allergies/Adverse Reactions: codeine Allergy (Severe, Verified 08/03/18 11:38) hydrocodone Allergy (Severe, Verified 08/03/18 11:38) Vomiting tramadol Allergy (Severe, Verified 08/03/18 11:38) Vomiting losartan Allergy (Verified 09/06/18 11:13) propafenone [From Rythmol] Allergy (Verified 09/06/18 11:13) LISINIPRIL Allergy (Uncoded 09/06/18 11:13) - Home Medications Home medications: home medication list seen and reviewed Home Medications: Omeprazole [Prilosec 20 mg] 40 mg PO DAILY 05/19/16 [Last Taken 10/03/18 09:00] C/E/Zn/Cu/OM3/DHA/EPA/LUT/ZEAX [Preservision Areds 2 Softgel] 1 each PO BID 10/08 [Last Taken 10/03/18 09:00] Amiodarone HCl [Pacerone (*)] 200 mg PO DAILY 09/27/18 [Last Taken 10/03/18 09: 00] Metoprolol Tartrate [Lopressor 25 mg (*)] 25 mg PO BID 09/27/18 [Last Taken 21:00] Potassium Cl [Klor-Con 20 meq (*)] 40 meq PO DAILY 09/27/18 [Last Taken 09:00] Warfarin Sodium [Coumadin 4MG (*)] 2 mg PO SUMOTUWETHFR@09/27/18 [Last Taken 09/25/18 09:00] Warfarin Sodium [Coumadin 4MG (*)] 4 mg PO SA@09/27/18 [Last Taken 10/01/18 09:00] - NPO status NPO Status: no food or drink >8 hours - Anes Hx Anes Hx: no prior problems - Smoking Hx Smoking Status: Former smoker ANE Physical Exam - Airway Neck exam: FROM Mallampati Score: Class 2 Mouth exam: normal dental/mouth exam - Pulmonary Pulmonary: no respiratory distress, no rales or rhonchi, clear to auscultation - Cardiovascular Cardiovascular: no murmur, rub, or gallop, irregularly irregular, tachycardia - ASA Status ASA Status: III ANE Anesthesia Plan Anesthesia Plan: general endotracheal anesthesia
[2018-11-03] MEDS ORDERED: NS 1,000 ML IV ONE (06:11)
[2018-11-03 07:14] LABS: PLATELET COUNT 327 10^3/uL (150-400)
[2018-11-03 07:23] LABS: INR 1.7 (0.83-1.16); PROTIME(PATIENT) 20.1 SEC (12.0-15.0)
[2018-11-03] MEDS ORDERED: HEPARIN 10,000 UNIT/10 ML MDV (1,000 UNIT/ML) ONE (08:33)
[2018-11-03] MEDS ORDERED: BUPIVACAINE 0.75% 10 ML SDV ONE (08:33)
[2018-11-03] MEDS ORDERED: LIDOCAINE 1% 300 MG/30 ML SDV ONE (08:33)
[2018-11-03] MEDS ORDERED: PROPOFOL/EMULSION 500 MG/50 ML BOTTLE IV ONE (08:48)
[2018-11-03] MEDS ORDERED: fentaNYL 100 MCG/2 ML INJ ONE (08:48)
[2018-11-03] MEDS ORDERED: GLYCOPYRROLATE 0.2 MG/1 ML VIAL ONE (09:29)
[2018-11-03] MEDS ORDERED: PHENYLEPHRINE HCL 100 MCG/ML SYR ONE (09:29)
[2018-11-03] MEDS ORDERED: ePHEDrine SULFATE 25 MG/5 ML SYR ONE (09:29)
--- NOTE | 2018-11-03 09:48 | PDANEPAE ---
ANE Past Medical History - Cardiovascular History Hx Hypertension: Yes Hx Arrhythmias: Yes - Pulmonary History Hx COPD: No Hx Oxygen in Use at Home: Yes Hx Sleep Apnea: Yes - Endocrine History Hx Diabetes: No Obesity: moderate - Chronic Pain History Chronic Pain: No ANE Review of Systems Review of Systems: ANE Patient History - Allergies Allergies/Adverse Reactions: codeine Allergy (Severe, Verified 08/03/18 11:38) hydrocodone Allergy (Severe, Verified 08/03/18 11:38) Vomiting tramadol Allergy (Severe, Verified 08/03/18 11:38) Vomiting losartan Allergy (Verified 09/06/18 11:13) propafenone [From Rythmol] Allergy (Verified 09/06/18 11:13) LISINIPRIL Allergy (Uncoded 09/06/18 11:13) - Home Medications Home Medications: Omeprazole [Prilosec 20 mg] 40 mg PO DAILY 05/19/16 [Last Taken 10/03/18 09:00] C/E/Zn/Cu/OM3/DHA/EPA/LUT/ZEAX [Preservision Areds 2 Softgel] 1 each PO BID 10/08 [Last Taken 10/03/18 09:00] Amiodarone HCl [Pacerone (*)] 200 mg PO DAILY 09/27/18 [Last Taken 10/03/18 09: 00] Metoprolol Tartrate [Lopressor 25 mg (*)] 25 mg PO BID 09/27/18 [Last Taken 21:00] Warfarin Sodium [Coumadin 4MG (*)] 2 mg PO SUMOTUWETHFR@16 09/27/18 [Last Taken 09/25/18 09:00] Warfarin Sodium [Coumadin 4MG (*)] 4 mg PO SA@16 09/27/18 [Last Taken 10/01/18 09:00] Furosemide [Lasix 40 MG (*)] 40 mg PO Q2D 10/27/18 [Last Taken Unknown] Klor-Con 10 Meq Cap 1 cap PO Q2D 10/27/18 [Last Taken Unknown] - Smoking Hx Smoking Status: Former smoker ANE Labs/Vital Signs - Labs Result Diagrams: 11/03/18 06:20 11/03/18 06:20 - Vital Signs Height: 154.94 cm Weight: 83.915 kg ANE Physical Exam - Airway Neck exam: decreased ROM Mallampati Score: Class 2 Mouth exam: normal dental/mouth exam - Pulmonary Pulmonary: no respiratory distress - Cardiovascular Cardiovascular: irregularly irregular - ASA Status ASA Status: III ANE Anesthesia Plan Anesthesia Plan: GA with mask, MAC
--- NOTE | 2018-11-03 09:57 | PDGENHP ---
History & Physical Chief Complaint: afib rvr Relevant Physical Exam: s1s2 irreg cta ao3 Cardiorespiratory Assessment: sp micra. sp avn ablation
--- NOTE | 2018-11-03 10:27 | EPPROC ---
Electrophysiology Procedure Note: CATHETER MEDIATED ABLATION OF THE AV JUNCTION Procedures performed: 01486 AV node ablation Fluoroscopy INDICATION: Atrial fibrillation, unable to rate control despite maximally tolerated medical therapy Catheters & Anesthesia: The patient arrived in the Electrophysiology Laboratory in the fasting state. Moderate sedation was administered by Dr. Parekh. The right groin and left groin area were prepped and draped in the usual sterile manner. Appropriate non- invasive blood pressure, pulse oximetry and end-tidal CO2 monitoring was established. All catheters were placed percutaneously using the modified Seldinger technique and advanced into position under fluoroscopic guidance). At baseline the patient was noted to be in AFIB with a mean ventricular rate of 110 bpm. A #7 Amharic deflectable quadrapolar electrode catheter (2mm-5mm-2mm spacing) with 8 mm tip electrode was advanced to the right atrium via LFV. RF applications were delivered to compact AV node area. Complete AV block was achieved. Cessation of pacing revealed that there was junctional escape rhythm at a rate of 34bpm. Pacemaker implantation (Micra) was done previously. The pacemaker was programmed to a lower rate of 80 ppm to reduce the risk of sudden associated with torsades de pointes. The lower rate will gradually be reduced to 60 ppm after 1 month . Pacing threshold 0.38 V @0.24 ms, output is programmed to 2 V @0.24 ms. The catheters were removed. The patient was transferred to the cardiovascular holding area in stable condition. Vascular access sheaths were removed in the holding area. There were no apparent complications. CONCLUSIONS: 1. Atrial fibrillation with rapid ventricular response. 2. Successful ablation of the AV junction producing complete AV block. 3. Junctional escape rhythm at a rate of 34 bpm. 4. No complications. Patient Problems: Problems Problem Status Onset Atrial fibrillation Acute Congestive heart failure Acute
--- NOTE | 2018-11-03 11:45 | CPEKG ---
Test Reason : OPEN Blood Pressure : / mmHG Vent. Rate : 080 BPM Atrial Rate : 112 BPM P-R Int : 042 ms QRS Dur : 159 ms QT Int : 482 ms P-R-T Axes : 000 262 082 degrees QTc Int : 557 ms Afib/flutter and ventricular-paced rhythm Confirmed by August Link ([id number]) on 11/03/2018 11:44:54 AM Referred By: August Link Confirmed By:August Link
--- NOTE | 2018-11-03 11:47 | CPEKG ---
Test Reason : OPEN Blood Pressure : / mmHG Vent. Rate : 106 BPM Atrial Rate : 125 BPM P-R Int : 126 ms QRS Dur : 101 ms QT Int : 343 ms P-R-T Axes : 000 086 -58 degrees QTc Int : 456 ms Atrial fibrillation Borderline right axis deviation Confirmed by August Link ([id number]) on 11/03/2018 11:47:26 AM Referred By: August Link Confirmed By:August Link
[2018-11-03] MEDS ORDERED: WARFARIN SODIUM 4 MG TAB PO SCH (16:00)
[2018-11-04 04:41] LABS: PLATELET COUNT 288 10^3/uL (150-400)
[2018-11-04 07:39] VITALS: BP 114/67
[2018-11-04] MEDS ORDERED: PANTOPRAZOLE SODIUM 40 MG TAB PO SCH (09:00)
--- NOTE | 2018-11-04 09:58 | ECHO ---
[email or web address] [address] [address] Main: [phone] Fax: Transthoracic Echocardiogram Name: ANTONIA TRIANA MR#: [id number] Study Date: 11/04/2018 Study Time: 08:56 AM Date of : 1935 Age: 83 year(s) Height: 154.9 cm (61 in.) Weight: 83.92 kg (185 lb.) BSA: 1.83 m2 Gender: Female Examination: Echo Indication: s/p AV node ablation Image Quality: Adequate Contrast: Requested by: Joana Treadwell BP: 114 mmHg/87 mmHg Heart Rate: Rhythm: Indication: s/p AV node ablation Procedure Staff Executive Meeting Manager: Carrie Damian [facility] Reading Physician: Camilo Colorado MD Requesting Provider: Conclusions: Normal global systolic LV function. EF is 53 %. The LV is mildly dyssynchronous. Grade III diastolic dysfunction. Moderate mitral annular calcification. Moderate mitral valve regurgitation is present. Mild to moderate tricuspid valve regurgitation. Right ventricular systolic pressure measures 47mmHg. Measurements: Chambers Valvular Assessment AV/MV Valvular Assessment TV/PV Normal Normal Normal Name Value Range Name Value Range Name Value Range IVSd (2D): 0.7 cm (0.6 cm-1.1 AV Vmax: 1.12 m/s (1 m/s-1.7 TR Vmax: 3.03 mm/s ( - ) cm) m/s) TR PGmax: 37 mmHg ( - ) LVDd (2D): 4.6 cm (3.9 cm-5.3 AV maxP mmHg ( - ) syst. PAP: 47 mmHg ( - ) cm) LVOT Vmax: 0.72 m/s (0.7 m/s-1.1 PV Vmax: 0.68 m/s (0.6 m/s-0.9 LVDs (2D): 3.7 cm (2.1 cm-4 m/s) m/s) cm) KELLY (Vmax): 2.0 cm2 ( - ) PV PGmax: 2 mmHg ( - ) LVPWd (2D): 0.9 cm ( - ) MV E Vmax: 0.92 m/s ( - ) LVOTd 2.0 cm 2.0 cm mm MV A Vmax: 0.27 m/s ( - ) LVEF (BP): 53 % (>=55 %) MV E/A: 3.41 ( - ) RVDd(2D): 4.0 cm (1.9 cm-3.8 MV meanP mmHg ( - ) cmmm) MVA (Vmax): 4.6 m/s ( - ) Continued Measurements: Chambers Valvular Assessment AV/MV Valvular Assessment TV/PV Name Value Name Value Name Value LADs: 3.8 cm MV Annulus: 3.0 cm CVP (est.): 10 mmHg Patient: ANTONIA TRIANA Study Date: 11/04/2018 Page 1 of 2 08:56 AM LADs Lon.6 cm MV DecTime: 88 m/s LA Area: 21.6 cm2 MV E' Septal: 0.04 m/s LA Volume: 67 ml MV E/E' Septal: 20.50 LA Volume Index: 36.6 ml/m2 MV E/E' Lateral: 14.70 TAPSE: 2.1 cm MV VTI: 10.50 cm RA Area: 20.5 cm2 MR Vena Contracta: 0.5 cm MR ERO: 0.170 cm2 MR PISA radius: 6 mm MR Reg. Volume: 29 ml MR Reg. Fraction: 39 % Additional Vessels Name Value Ao Ascendin.0 cm Findings: Left Ventricle: Normal size left ventricle. No LV hypertrophy. Normal global systolic LV function. EF is 53 %. The LV is mildly dyssynchronous. Grade III diastolic dysfunction. Right Ventricle: Upper normal size right ventricle. Normal RV function. Left Atrium: The left atrium is mildly dilated. Right Atrium: The right atrium is mildly to moderately dilated. Mitral Valve: There is mild thickening of the mitral valve leaflets. Moderate mitral annular calcification. Moderate mitral valve regurgitation is present.There is mild prolapse of the posterior leaflet of the mitral valve. No mitral stenosis is present. Aortic Valve: The aortic valve is tri-leaflet. There is no aortic valve regurgitation. No aortic valve stenosis is present. Tricuspid Valve: The tricuspid valve is normal in appearance and function. Mild to moderate tricuspid valve regurgitation. Right ventricular systolic pressure measures 47mmHg. The pulmonary artery pressure is mild to moderately increased. Pulmonic Valve: Pulmonary valve not well visualized. Trivial pulmonic valve regurgitation. Aorta: Normal size ascending aorta measuring 3.0 cm. IVC: The IVC is mildly dilated. No foreign body in inferior vena cava. There is greater michaela 50% respiratory excursion. Pericardium: No pericardial effusion. There is pericardial fat. (No Signature Object) Patient: ANTONIA TRIANA Study Date: 11/04/2018 Page 2 of 2 08:56 AM [id number]
--- NOTE | 2018-11-04 10:46 | ASDISCHSUM ---
Discharge Information Plan Status:Home with No Needs Medically Cleared to Leave:11/03/2018 Discharge Date:11/03/2018 CM D/C Disposition:Home, Routine, Self-Care ADT D/C Disposition:Home, Routine, Self-Care Projected Discharge Date:11/03/2018 Transportation at D/C:Family Discharge Delay Reason: Follow-Up Date:11/03/2018 Discharge Slot: Final Diagnosis: Placement Information Patient Contact Information Contact Name:RICKY Relationship:Daughter Address: Home Phone: City: [facility] Phone: State/[employer] Code: Email: Financial Information Financial Class:Medicare Advantage Plans Primary Plan Desc:[facility] ADVANTAGE PLANS Primary Plan Number:[id number] Secondary Plan Desc: Secondary Plan Number: Assessment Information LACE LACE Length of stay for Answers: 1 day current admission Acuity / Level of Answers: No Care: Did the patient have an inpatient admission? Comorbidities - select Answers: Chronic pulmonary disease all that apply Other Notes: HTN; AFib # of Emergency department Answers: 3-4 visits in the last 6 months Score: 7 Date Signed: 11/04/2018 10:45 AM Electronically Signed By:Dahiana Tamayo RN Intervention Information
--- NOTE | 2018-11-04 18:53 | GDS ---
[f rep st] DISCHARGE SUMMARY SUPERVISING PRINCIPAL ACCOUNTS CLERK: August Link MD ADMISSION DIAGNOSES: 1. Atrial fibrillation. 2. Leadless permanent pacemaker. DISCHARGE DIAGNOSES: Atrial fibrillation with rapid ventricular rate, status post arteriovenous node ablation with leadless permanent pacemaker. PROCEDURES DURING HOSPITALIZATION: 1. Electrocardiogram. 2. AV node ablation. 3. Echocardiogram. HOSPITAL COURSE: Patient presented 11/03/2018, for an AV node ablation 1 month after implant of a le adless permanent pacemaker in the setting of atrial fibrillation with rapid ventricular rates which h ave been difficult to control. She underwent successful AV node ablation with Dr. August Link and has had no intra procedure complications. She did very well in the postprocedure setting and has been u p ambulating around her room this morning without issue. She is appropriate and stable for discharge home today. PHYSICAL EXAMINATION: GENERAL: She is alert and oriented x4, in no apparent distress. VITAL SIGNS: Blood pressure 114/67, heart rate 84, respiratory rate 16, SpO2 93% on 3 L nasal cannula, temp 36.6 degrees Celsius. RESPIRATORY: Lungs are clear to auscultation without adventitious breath sounds. CARDIAC: Normal S1, S2, no S3 or S4. Rhythm is regular. ABDOMEN: Normoactive bowel sounds times al l 4 quadrants. No mass or tenderness. Abdomen is soft to palpation. SKIN: [place], warm, dry without cyanosis, clubbing, or peripheral edema. EXTREMITIES: Left pursestring suture removed intact withou t evidence of hematoma, redness, oozing, swelling or warmth. Pulses are 2+ bilaterally. No edema. LABORATORY STUDIES: Drawn today, CBC and BMP are stable compared to preprocedure. Troponin is 0.279 , elevated troponin is to be expected in the postprocedure setting. PROCEDURES: 1. AV node ablation as mentioned above. 2. Preliminary echocardiogram done this morning demonstrates stable left ventricular systolic functi on without any wall motion abnormalities or pericardial effusion. 3. Electrocardiogram this morning demonstrates V-paced rhythm without new ST-T wave or [place] interval a bnormalities. DISCHARGE DISPOSITION: Patient will be discharged home in stable condition. ACTIVITY: She is under activity restrictions as below. DISCHARGE MEDICATIONS: Please see discharge medication reconciliation sheet for full details. Plealicia e note, the patient's amiodarone and metoprolol have been discontinued at this time. Please note, sh e has been restarted on her blood thinner 6 hours post procedure. DISCHARGE INSTRUCTIONS: Post AV node ablation instructions reviewed with patient in detail. We disc ussed activity restrictions including lifting more than 10 pound and avoidance of submerged bathing f or 10 days. She will get up and walk around every 45 minutes for the next 45 days while awake. We a lso reviewed bleeding precautions, medication compliance, monitoring for signs and symptoms of infect ion, and monitoring for sustained arrhythmia. At the time of discharge, the patient verbalized under standing of all discharge instructions without questions or concerns. She has a followup visit sched [facility] in 3 weeks and she will contact our clinic with any new or concerning symptoms prior to the [facility] visit. Time spent on discharge greater than 30 minutes. /[id number]/MODL
--- NOTE | 2018-11-04 19:53 | CPEKG ---
Test Reason : OPEN Blood Pressure : / mmHG Vent. Rate : 082 BPM Atrial Rate : 216 BPM P-R Int : 074 ms QRS Dur : 158 ms QT Int : 466 ms P-R-T Axes : 000 253 087 degrees QTc Int : 545 ms Afib/flutter and ventricular-paced rhythm Confirmed by August Link ([id number]) on 11/04/2018 7:53:10 PM Referred By: August Link Confirmed By:August Link
[2018-11-05] MEDS ORDERED: FUROSEMIDE 40 MG TAB PO SCH (09:00)
[2018-11-05] MEDS ORDERED: POTASSIUM CL 10 MEQ TAB PO SCH (09:00)
[2018-11-06] MEDS ORDERED: WARFARIN SODIUM 4 MG TAB PO SCH (16:00)
== END 2018-11-04 12:30 | disposition home or self-care (01) ==
LOC: FCATH 06:06 → F2W 10:17
PROVIDERS: ADMIT Internal Medicine Cardiovascular Disease; ATTEND Internal Medicine Cardiovascular Disease
PROC: 02563ZZ Destruction of Right Atrium, Percutaneous Approach (ICD-10-PCS; principal; 2018-11-03)
DX: I48.91 Unspecified atrial fibrillation (principal); I11.0 Hypertensive heart disease with heart failure; I50.9 Heart failure, unspecified; G47.30 Sleep apnea, unspecified; Z95.0 Presence of cardiac pacemaker; Z87.891 Personal history of nicotine dependence
CPT/HCPCS: 71046; 93005; 93306; 93619; 93650; C1732; G0378; J1644; J2370; J2704; J3010